=== PATIENT | male | born 1940 | race Caucasian/White ===

== ENCOUNTER 2018-03-28 09:39 | Outpatient (CLI) | payer MEDICARE, SELFPAY ==
[2018-03-28 10:28] LABS: HCT 41.2 % (40.0-50.0); HGB 14.7 g/dL (13.5-17.5); Mean Corp. HGB Concentration 35.7 g/dL (32.0-36.0); Mean Corpuscular Hemoglobin 36.8 pg (27.0-33.0); Mean Platelet Volume 9.3 fL (8.0-11.0); Platelet Count 194 x1000/uL (130-400); RBC Distribution Width 11.8 % (11.8-14.1); White Blood Cell Count 7.06 k/cumm (4.4-10.8)
[2018-03-28 11:42] LABS: Anion Gap 8.9 mmol/L (3-11); BUN 19 mg/dL (7-18); CO2 28.1 mmol/L (21.0-32.0); CREATININE 1.04 mg/dL (0.70-1.30); Calcium 8.6 mg/dL (8.5-10.1); Chloride 104 mmol/L (98-107); Glucose 114 mg/dL (70-100); Potassium 4.3 mmol/L (3.5-5.1); Sodium 141 mmol/L (136-145); Vitamin B12 502 pg/mL (193-986)
== END 2018-03-28 09:59 ==
PROVIDERS: PCP Family Medicine; Visit Provider Family Medicine
DX: I25.10 Atherosclerotic heart disease of native coronary artery without angina pectoris (principal); D75.89 Other specified diseases of blood and blood-forming organs; R60.0 Localized edema
CPT/HCPCS: 36415; 80048; 85027; 82607

== ENCOUNTER → 2018-09-13 09:21 | Outpatient (BNVA) | payer MEDICARE, SELFPAY | PROVIDERS: PCP Family Medicine; Referring Provider Family Medicine; Visit Provider Orthopaedic Surgery | DX: Z47.1 Aftercare following joint replacement surgery (principal); Z96.653 Presence of artificial knee joint, bilateral | CPT/HCPCS: 99213 ==

== ENCOUNTER 2018-10-09 08:14 | Day surgery (SDC) | payer MEDICARE, SELFPAY ==
--- NOTE | 2018-10-08 19:32 | W.PIPPEYE ---
History of Present Illness Chief Complaint: Progressive decreased vision, left eye Narrative: Patient is a 77-year-old male who has noted diminished visual acuity at near. He has significant difficulty trouble with reading. This is constant and occurs in both eyes. He was noted to have significant bilateral nuclear cataracts with high hyperopia. The option of cataract surgery was offered to patient as he felt he was symptomatic enough that he wished to proceed. NOTE: The Chief Complaint, HPI, Past Medical History, Past Surgical History, Family History, Social History, Medications, and complete Ophthalmic Exam with detailed Assessment and Plan have already been documented in the patient's outpatient ophthalmic record and are not covered again in detail here. PFSH Family History Other Cancer Social History Smoking/Tobacco Use Status: Former Tobacco Use Alcohol Intake: former Drug use: Never Substance use type: does not use Do you feel safe at home: Yes Do you feel safe in your relationship?: Yes Meds Home Medications Medication Instructions Recorded Confirmed Type aspirin [Aspir 81] 81 mg PO DAILY 11/26/13 10/03/18 History finasteride 5 mg PO HS 11/26/13 10/03/18 History Aloe Vera Juice 4 oz PO BID 10/03/18 10/04/18 History atorvastatin 40 mg PO QHS 10/03/18 10/03/18 History furosemide 20 mg PO DAILY 10/03/18 10/03/18 History metoprolol succinate 25 mg PO DAILY 10/03/18 10/03/18 History mupirocin 1 applic TOPICAL BID PRN 10/03/18 10/03/18 History selenium sulfide 1 % TOPICAL .2 X WEEK PRN 10/03/18 10/03/18 History solifenacin [Vesicare] 5 mg PO DAILY 10/03/18 10/03/18 History triamcinolone acetonide 1 applic TOPICAL BID PRN 10/03/18 10/03/18 History Allergies Allergy/AdvReac Type Severity Reaction Status Date / Time oxycodone [Oxycodone] AdvReac Severe SEVERE Unverified 10/04/18 14:07 NAUSEA Exam OCULAR EXAM:: Most recent ocular examination is significant for visual acuity of 20/30 OD, 20/25 OS. Intraocular pressure is 10 OU. Extraocular motility is normal. Pupils equal, round, and reactive without afferent pupillary defect slit-lamp examination is significant for intermediate anterior chamber depth centrally. Pupils dilated to 6 mm OU. 2-3+ brunescent nuclear cataract is present OU. Dilated funduscopic examination is significant for disc cupping of 0.3 OU. The vessels, macula, peripheral retina and vitreous is normal. BRIGHTNESS ACUITY TESTING (BAT):: Brightness acuity testing of the left eye office is 20/25. On low and medium is 20/30. On the high setting is 20/40. Assessment and Plan (1) Nuclear sclerotic cataract of left eye: Current visit: No Status: Acute Assessment: Visually significant cataract, left eye. Plan: Cataract extraction with intraocular lens implantation, left eye Note: NOTE:: The details of the planned surgery, including the risks, indications,limitations,expectations,outcome and possible complications were explained to the patient. The patient understands the complications including, but not limited to: infection, hemorrhage, posterior dislocation of the lens or nuclear fragments which may require the intervention of a vitreoretinal surgeon, possible loss of the eye, or from anesthetic complications. The patient has been made aware of the option of not having surgery, that vision following surgery may not be equal to that prior to surgery, and that the planned surgery may not achieve the intended results. Following this discussion, which the patient appeared to understand, the patient wishes to proceed with cataract surgery with lens implantation of the affected eye to improve and maximize vision.
[2018-10-09 08:10] VITALS: BP 116/80; PULSE 61; RESP 16; TEMP 36.2; O2SAT 98
[2018-10-09] MEDS: Tetracaine 0.5% 4 ML BTL OS ×4 (08:37→10:00)
[2018-10-09] MEDS: Tropicam./Phenyleph. (1/2.5%) 5 ML BTL OS ×3 (08:38→08:48)
--- NOTE | 2018-10-09 09:44 | PDOC.DSDIS_ITS ---
Discharge Plan Disposition Patient Disposition: HOME Condition: Stable Discharge Details Attending Provider: Dg García Primary Care Provider: Ivan Leblanc [place] Meds and New Rx's Prescriptions: No Action aspirin [Aspir-81] 81 MG tablet,delayed release (DR/EC) 81 mg PO DAILY RF: 0 finasteride 5 MG tablet 5 mg PO HS RF: 0 Aloe Vera Juice 4 oz PO BID RF: 0 atorvastatin 40 mg Tablet 40 mg PO QHS RF: 0 triamcinolone acetonide 0.1 % Cream 1 applic TOPICAL BID PRNRF: 0 mupirocin 2 % Ointment 1 applic TOPICAL BID PRNRF: 0 furosemide 20 mg Tablet 20 mg PO DAILY RF: 0 metoprolol succinate 25 mg Tablet Extended Release 24 Hr 25 mg PO DAILY RF: 0 Vesicare 5 mg Tablet 5 mg PO DAILY RF: 0 selenium sulfide 2.5 % Lotion 1 % TOPICAL .2 X WEEK PRNRF: 0 Discharge Instructions Stand Alone Forms: Post-op Topical Cataract, Fatou Diez (DSU) Discharge Orders Discharge Orders: Discharge Order (Routine); Ordered 10/09/18 Ordered By: Dg García DS: Diagnosis Discharge Diagnosis (1) Nuclear sclerotic cataract of left eye: Status: Resolved (2) Status post cataract extraction and insertion of intraocular lens of left eye: Status: Chronic
--- NOTE | 2018-10-09 09:46 | ROE_ITS ---
Date of service: 10/09/18 Time of Service: 10:30 Operative Note PRE-OP DIAGNOSIS: Cataract, left eye POST-OP DIAGNOSIS: same PROCEDURE: Cataract extraction using phacoemulsification with intraocular lens implant, left eye SURGEON: Dg García ANESTHESIA: MAC and local (sub-tenon's anesthetic infiltration) PATHOLOGY: none sent COMPLICATIONS: None Patient was transported to: same day Patient's condition: stable Implants: [place] [employer] [place] [employer] / [employer] Tecnis ZCB00 Indications: Progressive decreased vision due to cataract, left eye Procedure Description: CATARACT SURGERY OPERATIVE REPORT PREOPERATIVE DIAGNOSIS: Nuclear cataract, left eye POSTOPERATIVE DIAGNOSIS: Same OPERATION: Cataract extraction using phacoemulsification with posterior chamber intraocular lens implant, left eye. IOL: IOL [employer]igator [employer]/Model: J&J Vision / GOPI Tecnis ZCB00 IOL Power: + 23.50 diopters IOL Serial Number: [id number] Optic Diameter: 6.0mm Haptic/Overall Diameter: 13.0mm PHACO INFO: Sachin Altheosurion Vision System with OZil and Active Fluidics Cumulative Dispersed Energy (CDE): 7.75 seconds SURGEON: Dg García MD, DERIAN ANESTHESIA: Monitored Anesthesia Care (MAC), with local sub-tenon's anesthetic infiltration COMPLICATIONS: None SPECIMENS: None INDICATIONS FOR PROCEDURE: The patient is a 77-year-old male with history of high hyperopia who has developed symptomatic bilateral nuclear cataract. The option of cataract surgery was offered to the patient and he felt he was symptomatic enough that he wished to proceed. PROCEDURE: The correct surgical eye was identified and marked as the left eye and the pupil was dilated in the preoperative area using mydriatics and cycloplegics. The dilated pupil size was 6.5 mm. Oral sedation was administered in the form of an Imprimis MKO Melt (midazolam 3mg/ketamine 25mg/ondansetron 2mg). The patient was brought to the operating room where cardiopulmonary monitoring was instituted and surgical time-out was performed, confirming the correct operative eye and IOL power. Topical anesthesia was administered and ophthalmic povidone-iodine 5% was instilled into the conjunctival fornices. Lidocaine gel was applied to the cornea and the laney-ocular area was prepped with Betadine 10% solution and draped in the usual sterile fashion for intraocular surgery, including an aperture drape. A Tegaderm transparent film dressing was cut in half and used to cover the lashes and lid margins. Care was taken to sequester the lashes and lid margins under the Tegaderm dressing. A lid speculum was placed between the lids of the operative eye and the [place]se[place]-Jayna operating microscope was maneuvered into position. Gabby scissors were then used to make a conjunctival buttonhole approximately 6mm posterior to the limbus in the inferonasal quadrant. Blunt dissection was carried out to expose bare sclera, and a blunt-tipped sub-tenon?s anesthesia cannula was introduced and passed posteriorly along the globe where non- preserved plain lidocaine was injected into posterior sub-Tenon?s space. A sideport knife was used to make a paracentesis port superior/superiortemporal, and the anterior chamber was filled with Viscoat. A 2.4mm keratome knife was used to create a half-thickness groove at the limbus and then to construct a three-plane near-clear corneal tunnel extending 2.0mm into clear cornea in the temporal position. . A flap was raised on the anterior capsule and capsulorhexis forceps were used to complete a continuous curvilinear capsulorhexis of 4.8 mm. Balanced salt solution was then used to perform cortical cleaving hydrodissection and nuclear hydrodelineation until the lens could be freely rotated within the capsular bag. The lens nucleus was then disassembled and removed within the capsular bag and iris plane using phacoemulsification. Residual cortical material was removed using the 45-degree angled silicone I/A tip with 0.3mm port. The posterior capsule was carefully polished to remove as much residual lens epithelial cells as safely possible. The capsular bag was then inflated and the anterior chamber deepened with Provisc. The lens implant described above was inserted into the capsular bag using the GOPI [place] Injector. A Kuglen hook was used to dial the IOL into position. Residual viscoelastic was then removed first from posterior to the IOL, then from the anterior chamber using the I/A handpiece. The lens implant was noted to center nicely within the capsular bag. The incisions were stromally hydrated, and the anterior chamber was reformed using BSS. Then 0.4cc of moxifloxacin 1.5mg/ml were injected into the capsular bag and anterior chamber. The incisions were checked with a Weck spear and found to be secure. Several drops of ophthalmic povidone-iodine 5% were then applied to the eye followed by two drops of Imprimis combination gatifloxacin/dexamethasone solution. The drapes were removed and a clear plastic protective eye shield was placed over the eye. The patient was then returned to Same Day Surgery in stable condition.
[2018-10-09] MEDS: Lidocaine 2% Jelly 6 ML SYR (10:00)
[2018-10-09] MEDS: Povidone-Iodine Ophth 30 ML BTL ×2 (10:00→10:23)
[2018-10-09] MEDS: Lidocaine 1% Pres-Free 5 ML VIAL (10:05)
[2018-10-09] MEDS: Duovisc Viscoelastic System EACH 1 EACH (10:05)
[2018-10-09] MEDS: Balanced Salt Soln.-PLUS 500 ML BAG (10:05)
[2018-10-09 10:50] VITALS: BP 112/76; PULSE 54; RESP 18; TEMP 36.4; O2SAT 93
== END 2018-10-09 11:00 | disposition home or self-care (01) ==
PROVIDERS: PCP Family Medicine; Visit Provider Ophthalmology
PROC: (CPT 66984; principal; 2018-10-09 10:30)
DX: H25.12 Age-related nuclear cataract, left eye (principal); J44.9 Chronic obstructive pulmonary disease, unspecified; G47.33 Obstructive sleep apnea (adult) (pediatric); I10 Essential (primary) hypertension
CPT/HCPCS: 66984; V2632

== ENCOUNTER 2018-10-23 09:49 | Day surgery (SDC) | payer MEDICARE, SELFPAY ==
--- NOTE | 2018-10-22 18:08 | W.PIPPEYE ---
History of Present Illness Chief Complaint: Progressive decreased vision, right eye Narrative: The patient is a 77-year old male with history of progressive decreased vision in both eyes at near. He noted decreased reading vision in both eyes. He was noted to have significant bilateral nuclear cataracts with visual acuity of 20/40 OD, 20/30 OS. He was significantly symptomatic that he desired cataract surgery which was performed OS on 10/09/2018. Postoperatively he has regained best corrected vision of 20/20 in the left eye. He now presents for cataract surgery in the right eye. NOTE: The Chief Complaint, HPI, Past Medical History, Past Surgical History, Family History, Social History, Medications, and complete Ophthalmic Exam with detailed Assessment and Plan have already been documented in the patient's outpatient ophthalmic record and are not covered again in detail here. [facility] Medical History Hx of actinic keratosis (Acute) BPH (benign prostatic hyperplasia) (Chronic) COPD (chronic obstructive pulmonary disease) (Chronic) Cataract (Chronic) Coronary artery disease (Chronic) High cholesterol (Chronic) Hypertension (Chronic) WILDA on CPAP (Chronic) Nuclear sclerotic cataract of left eye (Resolved) Surgical History Status post cataract extraction and insertion of intraocular lens of left eye (Chronic 10/09/18) History of cardiac catheterization (Chronic) History of colonoscopy (Chronic) History of knee replacement (Chronic) History of shoulder surgery (Chronic) Family History Other Cancer Social History Smoking/Tobacco Use Status: Former Tobacco Use Alcohol Intake: former Drug use: Never Substance use type: does not use Do you feel safe at home: Yes Do you feel safe in your relationship?: Yes Meds Home Medications Medication Instructions Recorded Confirmed Type aspirin [Aspir 81] 81 mg PO DAILY 11/26/13 10/09/18 History finasteride 5 mg PO HS 11/26/13 10/09/18 History Aloe Vera Juice 4 oz PO BID 10/03/18 10/09/18 History atorvastatin 40 mg PO QHS 10/03/18 10/09/18 History furosemide 20 mg PO DAILY 10/03/18 10/09/18 History metoprolol succinate 25 mg PO DAILY 10/03/18 10/09/18 History mupirocin 1 applic TOPICAL BID PRN 10/03/18 10/03/18 History selenium sulfide 1 % TOPICAL .2 X WEEK PRN 10/03/18 10/03/18 History solifenacin [Vesicare] 5 mg PO DAILY 10/03/18 10/09/18 History triamcinolone acetonide 1 applic TOPICAL BID PRN 10/03/18 10/03/18 History Allergies Allergy/AdvReac Type Severity Reaction Status Date / Time oxycodone [Oxycodone] AdvReac Severe SEVERE Unverified 10/09/18 08:34 NAUSEA Exam OCULAR EXAM:: Most recent ocular examination is significant for uncorrected vision of 20/200 OD, 20/40 OS. Intraocular pressure is 10 OU. Extraocular motility is normal. Pupils equal, round, and reactive without afferent pupillary defect slit-lamp examination is significant for intermediate depth anterior chamber OD. Pupils dilated to 6 mm OU. 2-3+ nuclear cataract OD. Well-positioned PCIOL OS with clear posterior capsule. Dilated funduscopic examination shows disc cupping of 0.3 OU with normal vessels, macula, peripheral retina and vitreous. BRIGHTNESS ACUITY TESTING (BAT):: Brightness acuity testing of the right eye office is 20/30. Low is 20/50. Medium is 20/50. On the high setting is 20/70. Assessment and Plan (1) Nuclear sclerotic cataract of right eye: Current visit: No Status: Acute Assessment: Visually significant cataract, right eye. Plan: Cataract extraction with intraocular lens implantation, right eye Note: NOTE:: The details of the planned surgery, including the risks, indications,limitations,expectations,outcome and possible complications were explained to the patient. The patient understands the complications including, but not limited to: infection, hemorrhage, posterior dislocation of the lens or nuclear fragments which may require the intervention of a vitreoretinal surgeon, possible loss of the eye, or from anesthetic complications. The patient has been made aware of the option of not having surgery, that vision following surgery may not be equal to that prior to surgery, and that the planned surgery may not achieve the intended results. Following this discussion, which the patient appeared to understand, the patient wishes to proceed with cataract surgery with lens implantation of the affected eye to improve and maximize vision.
[2018-10-23 10:12] VITALS: BP 118/79; PULSE 54; RESP 16; TEMP 35.9; O2SAT 97
[2018-10-23] MEDS: Tetracaine 0.5% 4 ML BTL OD ×4 (10:27→11:20)
[2018-10-23] MEDS: Tropicam./Phenyleph. (1/2.5%) 5 ML BTL OD ×3 (10:27→10:34)
--- NOTE | 2018-10-23 11:11 | PDOC.DSDIS_ITS ---
Discharge Plan Disposition Patient Disposition: HOME Condition: Stable Discharge Details Attending Provider: Dg García Primary Care Provider: Ivan Leblanc [place] Meds and New Rx's Prescriptions: No Action aspirin [Aspir-81] 81 MG tablet,delayed release (DR/EC) 81 mg PO DAILY RF: 0 finasteride 5 MG tablet 5 mg PO HS RF: 0 Aloe Vera Juice 4 oz PO BID RF: 0 atorvastatin 40 mg Tablet 40 mg PO QHS RF: 0 triamcinolone acetonide 0.1 % Cream 1 applic TOPICAL BID PRNRF: 0 mupirocin 2 % Ointment 1 applic TOPICAL BID PRNRF: 0 furosemide 20 mg Tablet 20 mg PO DAILY RF: 0 metoprolol succinate 25 mg Tablet Extended Release 24 Hr 25 mg PO DAILY RF: 0 Vesicare 5 mg Tablet 5 mg PO DAILY RF: 0 selenium sulfide 2.5 % Lotion 1 % TOPICAL .2 X WEEK PRNRF: 0 Discharge Instructions Stand Alone Forms: Post-op Topical Cataract, Fatou Diez (DSU) Discharge Orders Discharge Orders: Discharge Order (Routine); Ordered 10/23/18 Ordered By: Dg García DS: Diagnosis Discharge Diagnosis (1) Nuclear sclerotic cataract of right eye: Status: Resolved (2) Status post cataract extraction and insertion of intraocular lens of right eye: Status: Chronic
--- NOTE | 2018-10-23 11:11 | W.PM.OP ---
Date of service: 10/23/18 Time of Service: 11:51 Operative Note PRE-OP DIAGNOSIS: Cataract, right eye PROCEDURE: Cataract extraction using phacoemulsification with intraocular lens implant, right eye SURGEON: Dg García ANESTHESIA: MAC and local (sub-tenon's anesthetic infiltration) ESTIMATED BLOOD LOSS: 0 PATHOLOGY: none sent COMPLICATIONS: None Patient was transported to: same day Patient's condition: stable Implants: [place] and [place] Vision / [employer] Opt[employer] Tecnis ZCB00 intraocular lens Indications: Progressive decreased vision due to cataract, right eye Procedure Description: CATARACT SURGERY OPERATIVE REPORT PREOPERATIVE DIAGNOSIS: Nuclear cataract, right eye POSTOPERATIVE DIAGNOSIS: Same OPERATION: Cataract extraction using phacoemulsification with posterior chamber intraocular lens implant, right eye. IOL: IOL Intensive Care Anaesthetist/Model: J&J gdgt / GOPI Tecnis ZCB00 IOL Power: + 23.0 diopters IOL Serial Number: [id number] Optic Diameter: 6.0mm Haptic/Overall Diameter: 13.0mm PHACO INFO: SachinTransceptaon Vision System with OZil and Active Fluidics Cumulative Dispersed Energy (CDE): 10.51 seconds SURGEON: Dg García MD, DERIAN ANESTHESIA: Monitored Anesthesia Care (MAC), with local sub-tenon's anesthetic infiltration COMPLICATIONS: None SPECIMENS: None INDICATIONS FOR PROCEDURE: Patient is a 77-year-old gentleman with history of diminished visual acuity and both eyes secondary to the development of significant bilateral nuclear cataract. He has already undergone cataract surgery and his left eye is doing well postoperatively. He now has significant anisometropia and asymptomatic cataract in his right eye. He presents for cataract surgery of the right eye. PROCEDURE: The correct surgical eye was identified and marked as the right eye and the pupil was dilated in the preoperative area using mydriatics and cycloplegics. The dilated pupil size was 6.5 mm. Oral sedation was administered in the form of an Imprimis MKO Melt (midazolam 3mg/ketamine 25mg/ondansetron 2mg). The patient was brought to the operating room where cardiopulmonary monitoring was instituted and surgical time-out was performed, confirming the correct operative eye and IOL power. Topical anesthesia was administered and ophthalmic povidone-iodine 5% was instilled into the conjunctival fornices. Lidocaine gel was applied to the cornea and the laney-ocular area was prepped with Betadine 10% solution and draped in the usual sterile fashion for intraocular surgery, including an aperture drape. A Tegaderm transparent film dressing was cut in half and used to cover the lashes and lid margins. Care was taken to sequester the lashes and lid margins under the Tegaderm dressing. A lid speculum was placed between the lids of the operative eye and the Jasmeet-Jayna operating microscope was maneuvered into position. Gbaby scissors were then used to make a conjunctival buttonhole approximately 6mm posterior to the limbus in the inferonasal quadrant. Blunt dissection was carried out to expose bare sclera, and a blunt-tipped sub-tenon?s anesthesia cannula was introduced and passed posteriorly along the globe where non-preserved plain lidocaine was injected into posterior sub-Tenon?s space. A sideport knife was used to make a paracentesis port inferiortemporally, and the anterior chamber was filled with Healon GV. A 2.4mm keratome knife was used to create a half-thickness groove at the limbus and then to construct a three-plane near-clear corneal tunnel extending 2.0mm into clear cornea in the superiortemporal position. . A flap was raised on the anterior capsule and capsulorhexis forceps were used to complete a continuous curvilinear capsulorhexis of 5.0 mm. Balanced salt solution was then used to perform cortical cleaving hydrodissection and nuclear hydrodelineation until the lens could be freely rotated within the capsular bag. The lens nucleus was then disassembled and removed within the capsular bag and iris plane using phacoemulsification. Residual cortical material was removed using the I/A handpiece. The posterior capsule was carefully polished to remove as much residual lens epithelial cells as safely possible. The capsular bag was then inflated and the anterior chamber deepened with viscoelastic. The lens implant described above was inserted into the capsular bag using the GOPI [place] Injector. A Kuglen hook was used to dial the IOL into position. Residual viscoelastic was then removed first from posterior to the IOL, then from the anterior chamber using the I/A handpiece. The lens implant was noted to center nicely within the capsular bag. The incisions were stromally hydrated, and the anterior chamber was reformed using BSS. Then 0.4cc of moxifloxacin 1.5mg/ml were injected into the capsular bag and anterior chamber. The incisions were checked with a Weck spear and found to be secure. Several drops of ophthalmic povidone-iodine 5% were then applied to the eye followed by two drops of Imprimis combination prednisolone/gatifloxacin/bromfenac solution. The drapes were removed and a clear plastic protective eye shield was placed over the eye. The patient was then returned to Same Day Surgery in stable condition.
[2018-10-23] MEDS: Lidocaine 2% Jelly 6 ML SYR (11:20)
[2018-10-23] MEDS: Balanced Salt Soln.-PLUS 500 ML BAG (11:30)
[2018-10-23] MEDS: Lidocaine 1% Pres-Free 5 ML VIAL (11:31)
[2018-10-23 12:20] VITALS: BP 115/73; PULSE 54; RESP 16; TEMP 36.7; O2SAT 94
== END 2018-10-23 12:31 | disposition home or self-care (01) ==
PROVIDERS: PCP Family Medicine; Visit Provider Ophthalmology
PROC: (CPT 66984; principal; 2018-10-23 12:30)
DX: H25.11 Age-related nuclear cataract, right eye (principal); Z98.42 Cataract extraction status, left eye; Z96.1 Presence of intraocular lens; J44.9 Chronic obstructive pulmonary disease, unspecified; G47.33 Obstructive sleep apnea (adult) (pediatric); I10 Essential (primary) hypertension
CPT/HCPCS: 66984; V2632

== ENCOUNTER 2019-01-31 13:38 | Outpatient (REF) | payer MEDICARE, SELFPAY ==
[2019-01-31 19:30] LABS: Anion Gap 10.5 mmol/L (3-11); BUN 16 mg/dL (7-18); CO2 27.5 mmol/L (21.0-32.0); CREATININE 0.93 mg/dL (0.70-1.30); Chloride 105 mmol/L (98-107); Glucose 105 mg/dL (70-100); Potassium 4.5 mmol/L (3.5-5.1); Sodium 143 mmol/L (136-145)
[2019-01-31 19:32] LABS: Abs Immature Grans 0.01 k/cumm (0.0-0.09); Absolute Basophil Count 0.03 k/cumm (0.0-0.2); Absolute Eosinophil Count 0.28 k/cumm (0.0-0.7); Absolute Lymphocyte Count 2.27 k/cumm (1.2-3.4); Absolute Neutrophil Count 3.38 k/cumm (1.2-6.7); Basophils % 0.5; Eosinophils % 4.3; HCT 45.1 % (40.0-50.0); HGB 15.6 g/dL (13.5-17.5); Immature Grans % 0.2; Lymphocytes % 34.6; Mean Corp. HGB Concentration 34.6 g/dL (32.0-36.0); Mean Corpuscular Hemoglobin 35.7 pg (27.0-33.0); Mean Corpuscular Volume 103.2 fL (80-95); Mean Platelet Volume 9.6 fL (8.0-11.0); Monocytes % 9.1; Neutrophils % 51.3; Platelet Count 199 x1000/uL (130-400); RBC 4.37 m/cumm (4.50-6.00); RBC Distribution Width 11.7 % (11.8-14.1); White Blood Cell Count 6.57 k/cumm (4.4-10.8)
[2019-01-31 19:35] LABS: Calcium 8.6 mg/dL (8.5-10.1)
== END 2019-01-31 13:58 ==
LOC: NCHCN 13:38
PROVIDERS: PCP Family Medicine; Visit Provider Family Medicine
DX: I25.10 Atherosclerotic heart disease of native coronary artery without angina pectoris (principal); R60.0 Localized edema; K12.0 Recurrent oral aphthae
CPT/HCPCS: 80048; 85025

== ENCOUNTER → 2019-02-14 10:35 | Outpatient (BNVA) | payer MEDICARE, SELFPAY | PROVIDERS: PCP Family Medicine; Referring Provider Family Medicine; Visit Provider Orthopaedic Surgery | DX: S46.912A Strain of unspecified muscle, fascia and tendon at shoulder and upper arm level, left arm, initial encounter (principal); X50.9XXA Other and unspecified overexertion or strenuous movements or postures, initial encounter | CPT/HCPCS: 99213; 99214 ==

== ENCOUNTER 2019-03-06 12:52 | Outpatient (CLI) | payer MEDICARE, SELFPAY ==
--- NOTE | 2019-03-06 11:30 | DI.CT_ITS ---
EXAM: CT CHEST W CLINICAL HISTORY: HEMOPTYSIS, R04.2, 78-YEAR-OLD FORMER SMOKER WITH COPD, NEW HEMOPTYSIS IN SETTING OF CLINICAL COPD EXACERBATION TECHNIQUE: Imaging Protocol: Axial computed tomography images with coronal and sagittal reformatted images were created and reviewed CONTRAST MATERIAL: Intravenous: Omnipaque 350 Contrast volume:100 mL contrast route:IV - Oral: No COMPARISON: CHEST FOR PULMONARY EMBOLUS from 11/10/2015 FINDINGS: Tracheobronchial tree: Patent where visualized. Mediastinum and Adrianna: No dominant adenopathy or fluid collection. Pulmonary parenchyma: No consolidation or dominant measurable mass. There are severe emphysematous ch anges present in the lungs. There is a stable 0.6 cm pleural-based nodule in the left lower lobe. T his is unchanged dating back to 11/10/2015. No new pulmonary nodules are present. Pleura: No effusion or pneumothorax. Heart/Aorta: Thoracic aorta non-dilated. The heart is not dilated. Coronary artery calcifications are present. Upper abdomen: There is hepatic steatosis. There is a 2 mm nonobstructing stone in the midpole of t he left kidney. There is a small hiatal hernia. Lymph nodes: Within normal limits. Bones: There are degenerative changes seen in the spine. There are old bilateral rib fractures prese nt. IMPRESSION: 1. No pulmonary mass or thoracic adenopathy. 2. Severe emphysematous changes in the lungs. 3. Stable 0.6 cm left lower lobe pulmonary nodule. 4. Hepatic steatosis. Left nephrolithiasis. DATA REPOSITORY: All CT scans at this facility are submitted to the National Radiology Data Registry (NRDR) Dose Index Registry (DIR) with the [employer] (A[employer]). RADIATION OPTIMIZATION: All CT scans at this facility use at least one of these dose optimization te chniques: automated exposure control; mA and/or kV adjustment per patient size (includes targeted exa ms where dose is matched to clinical indication); or iterative reconstruction.
[2019-03-06] MEDS: Omnipaque 350 MG/ML 100 ML BTL IJ (12:01)
== END 2019-03-06 13:12 ==
PROVIDERS: PCP Family Medicine; Visit Provider Family Medicine
DX: R04.2 Hemoptysis (principal); J44.9 Chronic obstructive pulmonary disease, unspecified; Z87.891 Personal history of nicotine dependence; R91.1 Solitary pulmonary nodule; K76.0 Fatty (change of) liver, not elsewhere classified; N20.0 Calculus of kidney; K44.9 Diaphragmatic hernia without obstruction or gangrene; J43.8 Other emphysema
CPT/HCPCS: 71260; J3490

== ENCOUNTER 2020-02-26 16:10 | Outpatient (REF) | payer MEDICARE, SELFPAY ==
[2020-02-26 19:08] LABS: BUN 26 mg/dL (7-18); CREATININE 1.21 mg/dL (0.70-1.30); Chloride 105 mmol/L (98-107); Estimated GFR 57.56 (mL/min/1.73m2); Glucose 101 mg/dL (74-106); Magnesium 2.3 mg/dL (1.8-2.4); Potassium 4.5 mmol/L (3.5-5.1); Sodium 141 mmol/L (136-145)
== END 2020-02-26 16:30 ==
LOC: NCHCN 16:10
PROVIDERS: PCP Family Medicine; Visit Provider Family Medicine
DX: J44.9 Chronic obstructive pulmonary disease, unspecified (principal)
CPT/HCPCS: 80048; 83735

== ENCOUNTER 2020-03-18 00:13 | Outpatient (CLI) | payer MEDICARE, SELFPAY ==
--- NOTE | 2020-03-18 | DI.US_ITS ---
EXAM: US AAA DIAGNOSTIC CLINICAL HISTORY: F/U AAA,I71.4 COMPARISON: US AAA SCREENING from 05/14/2016 FINDINGS: The proximal abdominal aorta measures 3.2 cm. The distal abdominal aorta measures 3.3 cm. The right iliac artery 1.7 cm. The left iliac artery measures 1.2 cm. IMPRESSION: Maximal dimension of the abdominal aorta is 3.3 cm. 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 DATA REPOSITORY:
== END 2020-03-18 00:33 ==
PROVIDERS: PCP Family Medicine; Visit Provider Family Medicine
DX: I71.4 Abdominal aortic aneurysm, without rupture (principal)
CPT/HCPCS: 76775

== ENCOUNTER 2020-06-11 22:35 | Emergency (ER) | payer MEDICARE, SELFPAY ==
--- NOTE | 2020-06-11 22:30 | RT.EKG_ITS ---
APPROVED REPORT Exam: Resting ECG Patient Location: E HR:62 bpm ECG Measurements Heart Rate [address] 206 P 58 QRSd 81 QRS -24 QT 413 T 100 QTc 418 Conclusion Sinus rhythm...normal P axis, V-rate 60- 99 Low voltage, extremity and precordial leads...extremity<0.5mV, precordial<1.0mV Nonspecific T abnormalities, lateral leads...T <-0.10mV, I aVL V5 V6
[2020-06-11 22:41] VITALS: BP 141/71; PULSE 62; RESP 16; TEMP 36.5; O2SAT 100
--- OUTSIDE RECORDS SUMMARY | 2020-06-11 22:42 | XMS_ITS | Encounter Summary ---
:1940 Author Care Team Providers Name Role Phone Ivan Leblanc MD ([facility]) Primary Care Provider [phone] [facility] Medical Records OTHER [phone] [facility] OTHER [phone] Reason for Visit Obstructive sleep apnea syndrome Assessment and Plan 1. Obstructive sleep apnea syndr ome WILDA diagnosed in 2011 with an AHI of 43/hr, he has COPD overlap syndrome. He had been using BiPAP Imax 17 cm, Vinod 12 cm, PS 4 cm until it broke a few months ago. I ordered a new one on 02/06/20 but he had to this face to face visit before his insurance would pay for a new BiPAP. He says since he has been without BiPAP he is much more fatigued and he is now waking up multiple times a night. I want him to start back SHANIQUA. Unfortuna tely he is having a dispute with Angelina over a bill his girlfriend received and he said he won't parts picker his BiPAP until that is resolved. I offered to send it to another DME and he declined. He is aware he will need to meet insurance compliance requirements again. I will see him back in three months. Drowsy driving precautions were reviewed. He is asked to call the clinic for any sleep related questio ns or concerns. I provided greater than 25 minutes in e care of this patient, more than half the time was spent in [id number] counseling. Discussion Note: None recorded.Patient educational handouts: No information available. Plan of Care Reminders Provider Appointments Office 30 07/16/2020 Kemar Santizo, 11:30AM SUPERINTENDENT MECHANICAL Lab None ? ? recorded. Referral None ? ? recorded. Procedures None ? ? recorded. Surgeries None ? ? recorded. Imaging None ? ? recorded. Medications Name Start Date ? ? Asprin Ec Low Dose 81 mg tablet,delayed release ? Take 1 tablet every day by oral route. atorvastatin 40 mg tablet ? Take 1 tablet every day by oral route. finasteride 5 mg tablet ? Take 1 tablet every day by oral route. furosemide 20 mg tablet ? Take 1 tablet every day by oral route. metoprolol tartrate 25 mg tablet ? Take 1 tablet twice a day by oral route. selenium sulfide 2.5 % lotion ? APPLY TO WET SCALP BY TOPICAL ROUTE ONC E WEEKLY WORK INTO A FULL LATHER, LEAVE ON SCALP FOR 2-3 MINUTES, RINSE THOROUGHLY, AND THEN PAT DRY triamcinolone 0.1 % topical ointment and dimethicone 5 % topical ? cream Vesicare 5 mg tablet ? Take 1 tablet every day by oral route. Medications Administered None recorded. Vitals Height Weight BMI Blood Pressure 5 ft 6 in 213.4 lbs 34.4 kg/m2 120/80 mm[Hg] Results Lab Results None recorded. Allergies Code Code System Name Reaction Severity Onset Combivent ? ? ? 42457 RxNorm Percocet ? ? ? 07324 RxNorm Terazosin ? ? ? 020060 RxNorm Vicodin ? ? ? Problems Name Status Onset Date Source ? Chronic Obstructive Lung Disease Active 03/30/2019 ? Diverticulitis Active 03/30/2019 ? History of Cardiac Catheterization Active 03/30/2019 ? History of Arthroplasty of Right Knee Active 03/30/2019 ? Obstructive Sleep Apnea Syndrome Active ? ? Procedures None recorded. Vaccine List None recorded. Social History Tobacco Smoking Status Former Smoker Notes: Started 12 Quit age 45- 3PPD Alcohol intake None Notes: Quit age 2 7- quart fo Vodka a day Live alone or with others? with others Animal exposure? N Are you currently employed? N Smokeless Tobacco Status Never used smokeless tobacco Blind or serious difficulty N Notes: Abraham rgery, reading seeing glasses Passive smoke exposure? N Hard of hearing or deaf in one Y Notes: Right ear or both ears? hearing aid E-cigarette/Vape Status Never used electronic cigarettes Caffeine intake Occasional Notes: 20 cups Co ffee a month, 3 soda's ( [facility]) weekly Drug Use N Occupation Retired Functional Status No Impairment. Past Encounters 03/11/2020 Obstructive Sleep Apnea Syndrome Luisa Santizo SUPERINTENDENT MECHANICAL: [address] [place] [phone], Ph. History of Present Illness Note: <p>Adeel Carbee comes in for WILDA follow-up.</p><p>
</p><p>Adeel was seen by me on 05/10/19. Adeel has a history of obesity, COPD, CAD, HLD, BPH and WILDA.He had a PSG 12/18/11 (BMI 37.6), AHI 43/hr, 02 nadr 69%. PLMi 11/hr, PLMai 9/hr. Titration 02/24/12 (BMI 36.4), CPAP titrated to 12 cm, BiPAP to 17/13 cm, BiPAP 15/11 cm was successful but no significant REM seen at this setting. PLMi 68/hr, PLMai 21.4/hr. BiPAP 19/11/4 cm recommended. Last visit he was using BiPAP 17/12/4 cm for about 4.5 hrs/night with excellent reduction in AHI. 02/06/20: Adeel stopped by to report his BiPAP is not working, new order placed.</p><p>
</p><p>Adeel tells me he has not been using his BIPAP machine for about two to three months because he wakes feeling short of breath and his humidifier stopped working and caused a very dry mouth. I ordered a new BiPAP but he never got it because he apparently needed a F2F visit with me first. He says since he has been without BiPAP he is much more fatigued and he is now waking up multiple times a n ight.</p><p>
</p><p>
</p><p&g t;COMPLIANCE REVIEW:no data available</p>Review of Systems: ROS as noted in the HPI Review of Systems None recorded. Physical Exam ? Notes: <p>General: A&O, well groome d {{over weight obese * morbidly obese normal weight thin}}.
HEAD: no rmocephalic & atraumatic.
EYES: non icteric.
LUNGS: CTA all f ields. Good air movement.
CARDIO: RRR without murmur, gallop or thrill.
NEURO: A&O. Normal gait.
PSYCH: Normal mood and affect.
CUTANEOUS: no overt lesions or rashes</p>
--- OUTSIDE RECORDS SUMMARY | 2020-06-11 22:42 | XMS_ITS ---
:1940 Author Care Team Providers Name Role Phone RODERICK HSIEH MD ([facility]) Primary Care Provider [phone] [facility] MEDICAL RECORDS OTHER [phone] [facility] OTHER [phone] Allergies Code Code System Name Reaction Severity Status Onset Combivent ? ? Active ? 34845 RxNorm Percocet ? ? Active ? 00368 RxNorm Terazosin ? ? Active ? 059322 RxNorm Vicodin ? ? Active ? Medications Name Status Start Date Stop Date ? ? Asprin Ec Low Dose 81 mg tablet,delayed release Active ? Not available Take 1 tablet every day by oral route. atorvastatin 40 mg tablet Active ? Not av ailable Take 1 tablet every day by oral route. finasteride 5 mg tablet Active ? Not avai lable Take 1 tablet every day by oral route. furosemide 20 mg tablet Active ? Not avai lable Take 1 tablet every day by oral route. metoprolol tartrate 25 mg tablet Active ? Not available Take 1 tablet twice a day by oral route. selenium sulfide 2.5 % lotion Active ? No t available APPLY TO WET SCALP BY TOPICAL ROUTE ONC E WEEKLY WORK INTO A FULL LATHER, LEAVE ON SCALP FOR 2-3 MINUTES, RINSE THOROUGHLY, AND THEN PAT DRY triamcinolone 0.1 % topical ointment and Active ? Not available dimethicone 5 % topical cream Vesicare 5 mg tablet Active ? Not availab le Take 1 tablet every day by oral route. Problems Name Status Onset Date Source ? Chronic Obstructive Lung Disease Active 03/30/2019 ? Diverticulitis Active 03/30/2019 ? History of Cardiac Catheterization Active 03/30/2019 ? History of Arthroplasty of Right Knee Active 03/30/2019 ? Obstructive Sleep Apnea Syndrome Active ? ? Procedures None recorded. Results Lab Results None recorded. Past Encounters 03/11/2020 Obstructive Sleep Apnea Syndrome Luisa Santizo ANALYSIS DIRECTOR: [address] [place] [phone], Ph. 05/10/2019 Obstructive Sleep Apnea Syndrome Luisa Santizo, ANALYSIS DIRECTOR: [address] [phone], Ph. 04/05/2019 Obstructive Sleep Apnea Syndrome Luisa Santizo, ANALYSIS DIRECTOR: [address] [phone], Ph. Social History Tobacco Smoking Status Former Smoker Notes: Started 14 Quit age 45- 3PPD Vaccine List None recorded. Plan of Care Reminders Provider Appointments None ? ? recorded. Lab None ? ? recorded. Referral None ? ? recorded. Procedures None ? ? recorded. Surgeries None ? ? recorded. Imaging None ? ? recorded. Vitals 03/11/2020 10:30AM Office 30 Height Weight BMI Blood Pressure 167.64 cm 96.8 kg 34.4 kg/m2 120/80 mm[Hg] 05/10/2019 01:45PM Office 30 Height Weight BMI Blood Pressure 167.64 cm 99.34 kg 35.3 kg/m2 120/80 mm[Hg] 04/05/2019 01:15PM New Patient 43 Weight Blood Pressure 99.34 kg 110/60 mm[Hg]
--- NOTE | 2020-06-11 22:47 | ED.GENADUL_ITS ---
Discharge Plan Disposition Patient Disposition: HOME Condition: Stable Discharge Details Clinical Impression: Dizziness Primary Care Provider: Ivan Leblanc ED Provider: Paul Bonilla Home Meds and New Rx's Prescriptions: New meclizine 25 mg tablet 25 mg PO TID PRN (Reason: dizziness) Qty: 30 RF: 0 Continued aspirin [Aspir-81] 81 MG tablet,delayed release (DR/EC) 81 mg PO DAILY RF: 0 finasteride 5 MG tablet 5 mg PO HS RF: 0 Aloe Vera Juice 4 oz PO BID RF: 0 atorvastatin 40 mg Tablet 40 mg PO QHS RF: 0 triamcinolone acetonide 0.1 % Cream 1 applic TOPICAL BID PRNRF: 0 mupirocin 2 % Ointment 1 applic TOPICAL BID PRNRF: 0 furosemide 20 mg Tablet 20 mg PO DAILY RF: 0 metoprolol succinate 25 mg Tablet Extended Release 24 Hr 25 mg PO DAILY RF: 0 solifenacin [Vesicare] 5 mg Tablet 5 mg PO DAILY RF: 0 selenium sulfide 2.5 % Lotion 1 % TOPICAL .2 X WEEK PRNRF: 0 Discharge Instructions Instructions: Vertigo (ED) Additional Instructions: Follow up with your primary care provider within 1 week if symptoms continue if you feel more ill, have severe head pain or weakness return to the emergency department Medical Decision Making 79 yo male with hx of hld, comes in with chief complaint of dizziness. STates for 3 days when he turns his head and rolls over on his side the room spins. De nies lightheadedness, no chest pain, no headache, no dyspnea, no fevers. No sensation that he may pass out. He has a normal steady gait and sitting in the stretcher has no symptoms but when he moves his head to the left starts feeling the room spinning. Has clear speech, no focal deficits, no vertical nystagmus, reassuring hints exam. Normal left tm and canal but the right canal is impacted with cerumen. Suspect this is peripheral vertigo and caused by the impaction, ecg without arrythmia. Given no presyncope symptoms no chest pain or sob and laughing in no distress do not feel this is cardiac etiology. Exam not consistent with central vertigo or cva so do not feel had imaging indicated. Will tx with meclizine and ear irrigation and evaluate for possible anemia and electrolyte abnormality pt's symptoms improved and ear wax irrigated out and has normal tm. Still walking unassisted and feels well. Will d/c home and advised to f/u with pcp and return precautions given Differential Diagnosis Differential Diagnosis: wax impaction, peripheral vertigo, electrolyte abnormality Lab Data Lab results reviewed: Yes I reviewed the patient's lab results. ECG Data Attestation: I personally reviewed and interpreted this ECG (s) as follows: Prior ECG tracings: not available for review Interpretation: sinus rhyhm, rate of 62, pr 206, qtc 418 HPI General Mode of arrival: ambulatory . Date/Time Provider Initiated Documentation: 06/11/20 22:36 . Limitations to Documentation: no limitations . Information obtained by: patient . History of Present Illness 79 year old M presents to the emergency department with the chief complaint of dizzy, described as moderate, Patient started experiencing this day(s) (3) and it has been intermittent. Other factors that worsen symptoms (turning head) . Patient did receive the following treatments prior to arrival, none Related Data Home Medications Medication Instructions Recorded Confirmed aspirin [Aspir-81] 81 mg PO DAILY 11/26/13 02/14/19 finasteride 5 mg PO HS 11/26/13 02/14/19 Aloe Vera Juice 4 oz PO BID 10/03/18 02/14/19 atorvastatin 40 mg PO QHS 10/03/18 02/14/19 furosemide 20 mg PO DAILY 10/03/18 02/14/19 metoprolol succinate 25 mg PO DAILY 10/03/18 02/14/19 mupirocin 1 applic TOPICAL BID PRN 10/03/18 02/14/19 selenium sulfide 1 % TOPICAL .2 X WEEK PRN 10/03/18 02/14/19 solifenacin [Vesicare] 5 mg PO DAILY 10/03/18 02/14/19 triamcinolone acetonide 1 applic TOPICAL BID PRN 10/03/18 02/14/19 meclizine 25 mg PO TID PRN #30 tab 06/11/20 Previous Rx's Medication Instructions Recorded meclizine 25 mg PO TID PRN #30 tab 06/11/20 Allergies Allergy/AdvReac Type Severity Reaction Status Date / Time acetaminophen [From Percocet] Allergy Mild Verified 02/14/19 10:38 albuterol [From Combivent] Allergy Mild Verified 02/14/19 10:38 hydrocodone [From Vicodin] Allergy Mild Verified 02/14/19 10:38 ipratropium [From Combivent] Allergy Mild Verified 02/14/19 10:38 terazosin Allergy Mild Verified 02/14/19 10:38 oxycodone [Oxycodone] AdvReac Severe SEVERE Verified 02/14/19 10:38 NAUSEA Review of Systems All systems reviewed & are unremarkable except as noted in HPI and below Constitutional Constitutional: Denies chills and Denies fever(s) Cardiovascular Cardiovascular: Denies dyspnea Respiratory Respiratory: Denies cough and Denies dyspnea Gastrointestinal Gastrointestinal: Denies abdominal pain, Denies nausea and Denies vomiting Genitourinary Genitourinary: Denies dysuria Musculoskeletal Musculoskeletal: Denies joint swelling Integumentary/Breasts Skin/Breast: Denies rash [facility] Medical History (Updated 06/11/20 @ 23:44 by Paul Bonilla MD) BPH (benign prostatic hyperplasia) Cataract COPD (chronic obstructive pulmonary disease) Coronary artery disease High cholesterol Hx of actinic keratosis Hypertension Nuclear sclerotic cataract of left eye WILDA on CPAP Surgical History (Updated 10/23/18 @ 11:11 by Dg García MD) History of cardiac catheterization History of colonoscopy History of knee replacement Bilateral History of shoulder surgery Status post cataract extraction and insertion of intraocular lens of left eye (10/09/18) Family History Other Cancer Social History Smoking/Tobacco Use Status: Former Tobacco Use Quit Date: 10/04/86 Smoking risk assessment performed?: Yes Alcohol Intake: former Drug use: Never Substance use type: does not use Do you feel safe at home: Yes Do you feel safe in your relationship?: Yes Exam Const General: no acute distress Orientation: alert HENMT Head: normal to inspection Ears: external ears normal General nose exam: external nose normal Mouth: moist mucous membranes Eyes General: appearance normal, both eyes and all related structures Neck Neck: normal visual inspection Resp Effort & Inspection: normal respiratory effort and able to speak in complete sentences Cardio Rate: regular rate Skin General skin exam: no rashes or lesions noted Neuro General: patient alert and patient oriented x3 Extrem General: normal to inspection Psych Mental Status: mental status grossly normal
[2020-06-11] MEDS: Meclizine 25 MG TAB PO (23:00)
[2020-06-11 23:14] LABS: Abs Immature Grans 0.02 10^3/uL (0.0-0.06); Absolute Basophil Count 0.02 10^3/uL (0.0-0.2); Absolute Eosinophil Count 0.18 10^3/uL (0.0-0.7); Absolute Lymphocyte Count 3.28 10^3/uL (1.2-3.4); Absolute Monocyte Count 0.92 10^3/uL (0.1-0.8); Absolute Neutrophil Count 4.02 10^3/uL (1.2-6.7); Basophils % 0.2; Eosinophils % 2.1; HCT 42.6 % (40.0-50.0); HGB 14.2 g/dL (13.5-17.5); Immature Grans % 0.2; Lymphocytes % 38.9; MCHC 33.3 % (32.0-36.0); MCV 104.9 fL (80-95); MPV 8.8 fL (8.0-11.0); Monocytes % 10.9; Neutrophils % 47.7; Nucleated RBC 0 %; Platelet Count 172 10^3/uL (130-400); RBC 4.06 10^6/uL (4.36-5.78); RDW 11.6 % (11.8-14.1); RDW-SD 45.1 fL; WBC 8.44 10^3/uL (4.4-10.8)
[2020-06-11 23:26] LABS: ALT 30 U/L (16-63); AST 20 U/L (15-37); Albumin 3.5 g/dL (3.4-5.0); Alkaline Phosphatase 89 U/L (46-116); Anion Gap 6.6 mmol/L (3-11); BUN 30 mg/dL (7-18); Bilirubin, Total 0.6 mg/dL (0.2-1.0); CO2 31.4 mmol/L (21.0-32.0); CREATININE 1.25 mg/dL (0.70-1.30); Calcium 8.7 mg/dL (8.5-10.1); Chloride 103 mmol/L (98-107); Estimated GFR 55.44 (mL/min/1.73m2); Glucose 105 mg/dL (74-106); Potassium 3.9 mmol/L (3.5-5.1); Sodium 141 mmol/L (136-145); Total Protein 6.7 g/dL (6.4-8.2)
== END 2020-06-11 23:55 | disposition home or self-care (01) ==
PROVIDERS: Emergency Provider Emergency Medicine; PCP Family Medicine
DX: H81.391 Other peripheral vertigo, right ear (principal); H61.21 Impacted cerumen, right ear
CPT/HCPCS: 36415; 69209; 80053; 93005; 99284; 85025; 93010; 99283

== ENCOUNTER → 2020-11-27 12:57 | Outpatient (BNVA) | payer MEDICARE, SELFPAY | PROVIDERS: PCP Family Medicine; Referring Provider Family Medicine; Visit Provider Nurse Practitioner Gerontology | DX: N47.8 Other disorders of prepuce (principal) | CPT/HCPCS: 99215 ==

== ENCOUNTER → 2020-12-18 13:14 | Outpatient (BNVA) | payer MEDICARE, SELFPAY | PROVIDERS: PCP Family Medicine; Referring Provider Family Medicine; Visit Provider Nurse Practitioner Gerontology | DX: N47.8 Other disorders of prepuce (principal) | CPT/HCPCS: 99213 ==

== ENCOUNTER 2021-02-17 01:19 | Outpatient (CLI) | payer MEDICARE, SELFPAY ==
--- NOTE | 2021-02-17 | DI.MRI_ITS ---
Exam(s) MR UPPER JOINT LT WO EXAM: MR UPPER JOINT LT WO CLINICAL HISTORY: LT ROTATOR CUFF SYNDROME,M75.102, PAIN. TECHNIQUE: Multiplanar multisequence MRI was performed. COMPARISON: None. FINDINGS: Exam mildly limited by patient motion. Bones: There is no fracture or contusion pattern. The acromioclavicular joint shows moderate spurring. Spur ring from the tip of the acromion.. Glenohumeral joint: Spurring of the inferior humeral head and gl enoid. Marked cartilage thinning of the glenoid. Rotator Cuff: There is a full-thickness tear of the supraspinatus tendon with retraction to the level of the glenoi d. There is severe muscle atrophy. Humeral head is positioned beneath the acromion. Findings are c onsistent with a longstanding, chronic rotator cuff tear. The infraspinatus tendon is also torn and retracted and there is severe infraspinatus atrophy. The subscapularis tendon shows thickening but n o evidence of a full-thickness tear. The teres minor muscle shows severe atrophy. Labrum and biceps anchor: The biceps tendon is located. The anchor is well maintained. The labrum shows advanced degenerative c hanges. There is a multiloculated collection posterosuperior to the glenoid measuring roughly 3.5 cm which may represent a multi loculated ganglion cyst or labral cyst.. It appears associated with the posterosuperior labrum. IMPRESSION: Full-thickness tears and retraction and severe muscle atrophy involving the supraspinatus and infrasp inatus. Severe muscle atrophy of the teres minor. Thickening of the subscapularis tendon. Severe d egenerative changes of the glenohumeral joint. The ganglion versus labels cyst posterosuperior to th e glenoid. DATA REPOSITORY:
== END 2021-02-17 01:39 ==
PROVIDERS: PCP Family Medicine; Visit Provider Family Medicine
DX: M75.102 Unspecified rotator cuff tear or rupture of left shoulder, not specified as traumatic (principal); M62.512 Muscle wasting and atrophy, not elsewhere classified, left shoulder; M19.012 Primary osteoarthritis, left shoulder
CPT/HCPCS: 73221

== ENCOUNTER 2021-02-25 11:26 | Outpatient (CLI) | payer MEDICARE, SELFPAY ==
--- NOTE | 2021-02-25 11:15 | DI.RAD_ITS ---
Exam(s) XR SHOULDER LT COMPLETE 2+V EXAM: XR SHOULDER LT COMPLETE 2+V CLINICAL HISTORY: LEFT SHOULDER PAIN. TECHNIQUE: 2D digital imaging was performed. COMPARISON: CR XR SHOULDER RT COMPLETE 2+V from 02/25/2021 FINDINGS: There is no evidence of acute fracture. There are advanced osteoarthritic degenerative changes in th e glenohumeral joint with opposing osteophytes on the inferior articular surfaces of the humeral head and osseous glenoid. In addition, there is advanced diminution of the subacromial space height, consistent with probable c hronic full-thickness rotator cuff tear. No abnormal soft tissue calcifications. Degenerative overton es in the AC joint. IMPRESSION: 1. Radiographic evidence of probable chronic full-thickness rotator cuff tear. 2. 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 DATA REPOSITORY: RADIATION DOSE DELIVERED:
--- NOTE | 2021-02-25 11:15 | DI.RAD_ITS ---
Exam(s) XR SHOULDER RT COMPLETE 2+V EXAM: XR SHOULDER RT COMPLETE 2+V CLINICAL HISTORY: RIGHT SHOULDER PAIN. TECHNIQUE: 2D digital imaging was performed. COMPARISON: Opposite side x-rays performed today FINDINGS: No evidence of acute fracture nor dislocation. There are advanced degenerative osteoarthritic change s with joint space narrowing in the glenohumeral joint as well as osteophytes on the inferior articul ar surface of the humeral head and osseous glenoid. There also intra-articular calcifications. In t he inferior recess there is a calcific density measuring 7 x 4 millimeters. In the medial subacromia l space above the osseous glenoid there is a 6 x 3 millimeter corticated density. Also noted is a finding similar to the opposite side which is significant diminution of the subacromi al space, indicating probable chronic rotator cuff full-thickness tearing. IMPRESSION: 1. Degenerative changes in the glenohumeral joint. Also some degenerative change in the AC joint. 2. Radiographic evidence of probable chronic full-thickness tear of the rotator cuff tendons. DATA REPOSITORY: RADIATION DOSE DELIVERED:
== END 2021-02-25 11:27 | disposition home or self-care (01) ==
LOC: DIORS 11:26
PROVIDERS: PCP Family Medicine; Referring Provider Family Medicine; Visit Provider Student in an Organized Health Care Education/Training Program
DX: M25.511 Pain in right shoulder (principal); M25.512 Pain in left shoulder; M75.101 Unspecified rotator cuff tear or rupture of right shoulder, not specified as traumatic; M75.102 Unspecified rotator cuff tear or rupture of left shoulder, not specified as traumatic; M12.811 Other specific arthropathies, not elsewhere classified, right shoulder; M12.812 Other specific arthropathies, not elsewhere classified, left shoulder; M54.6 Pain in thoracic spine
CPT/HCPCS: 99204; 99214; 73030

== ENCOUNTER → 2021-03-25 14:18 | Outpatient (BNVA) | payer MEDICARE, SELFPAY | PROVIDERS: PCP Family Medicine; Visit Provider Nurse Practitioner Gerontology | DX: N47.8 Other disorders of prepuce (principal); Z79.899 Other long term (current) drug therapy | CPT/HCPCS: 99213 ==

== ENCOUNTER → 2021-04-28 10:52 | Outpatient (BNVA) | payer MEDICARE, SELFPAY | PROVIDERS: PCP Family Medicine; Referring Provider Family Medicine; Visit Provider Student in an Organized Health Care Education/Training Program | DX: M12.811 Other specific arthropathies, not elsewhere classified, right shoulder (principal); M12.812 Other specific arthropathies, not elsewhere classified, left shoulder; M54.6 Pain in thoracic spine | CPT/HCPCS: 99212 ==

== ENCOUNTER → 2021-11-24 14:55 | Outpatient (BNVA) | payer MEDICARE, SELFPAY | PROVIDERS: PCP Family Medicine; Referring Provider Family Medicine; Visit Provider Nurse Practitioner Gerontology | DX: N47.8 Other disorders of prepuce (principal) | CPT/HCPCS: 99214 ==

== ENCOUNTER → 2022-03-25 14:42 | Outpatient (BNVA) | payer MEDICARE, SELFPAY | PROVIDERS: PCP Family Medicine; Referring Provider Family Medicine; Visit Provider Nurse Practitioner Gerontology | DX: N47.8 Other disorders of prepuce (principal) | CPT/HCPCS: 99214 ==

== ENCOUNTER 2022-03-29 17:52 | Outpatient (REF) | payer MEDICARE, SELFPAY ==
[2022-03-29 15:29] LABS: ALT 27 U/L (16-63); AST 29 U/L (15-37); Albumin 3.8 g/dL (3.4-5.0); Alkaline Phosphatase 75 U/L (46-116); Anion Gap 6.1 mmol/L (3-11); BUN 23 mg/dL (7-18); Bilirubin, Total 0.8 mg/dL (0.2-1.0); CO2 30.9 mmol/L (21.0-32.0); CREATININE 1.1 mg/dL (0.70-1.30); Chloride 102 mmol/L (98-107); Estimated GFR 66.61 (mL/min/1.73m2); Glucose 101 mg/dL (74-106); Potassium 4.4 mmol/L (3.5-5.1); Sodium 139 mmol/L (136-145); Total Protein 7.1 g/dL (6.4-8.2)
== END 2022-03-29 17:53 | disposition home or self-care (01) ==
LOC: LBN 17:52
PROVIDERS: PCP Family Medicine; Visit Provider Nurse Practitioner Family
DX: U07.1 COVID-19 (principal)
CPT/HCPCS: 80053

== ENCOUNTER → 2022-11-16 13:33 | Outpatient (BNVA) | payer MEDICARE, SELFPAY | PROVIDERS: PCP Family Medicine; Referring Provider Family Medicine; Visit Provider Nurse Practitioner Gerontology | DX: N47.8 Other disorders of prepuce (principal) | CPT/HCPCS: 99213 ==

== ENCOUNTER 2023-03-10 14:47 | Outpatient (REF) | payer MEDICARE, SELFPAY ==
[2023-03-10 20:07] LABS: Anion Gap 9.8 mmol/L (3-11); BUN 22 mg/dL (7-18); CO2 27.2 mmol/L (21.0-32.0); CREATININE 1.1 mg/dL (0.70-1.30); Calcium 9.3 mg/dL (8.5-10.1); Calculated LDL 44 mg/dL (<100); Chloride 104 mmol/L (98-107); Cholesterol 133 mg/dL (<200); Estimated GFR 66.19 (mL/min/1.73m2); Glucose 129 mg/dL (74-106); HDL Cholesterol 47 mg/dL (40-60); Sodium 141 mmol/L (136-145); Triglyceride 211 mg/dL (<150)
== END 2023-03-10 14:48 | disposition home or self-care (01) ==
LOC: NCHCN 14:47
PROVIDERS: PCP Family Medicine; Visit Provider Family Medicine
DX: I25.10 Atherosclerotic heart disease of native coronary artery without angina pectoris (principal)
CPT/HCPCS: 80048; 80061; 83735

== ENCOUNTER → 2023-04-12 08:08 | Outpatient (BNVA) | payer MEDICARE, SELFPAY | PROVIDERS: PCP Family Medicine; Referring Provider Family Medicine; Visit Provider Podiatrist | DX: B35.1 Tinea unguium (principal); L60.3 Nail dystrophy; I73.89 Other specified peripheral vascular diseases; I87.2 Venous insufficiency (chronic) (peripheral); R60.0 Localized edema | CPT/HCPCS: 11721; 99203 ==

== ENCOUNTER → 2023-07-12 10:42 | Outpatient (BNVA) | payer MEDICARE, SELFPAY | PROVIDERS: PCP Family Medicine; Referring Provider Family Medicine; Visit Provider Podiatrist | DX: L60.3 Nail dystrophy (principal); B35.1 Tinea unguium; I73.9 Peripheral vascular disease, unspecified; I87.2 Venous insufficiency (chronic) (peripheral); R60.0 Localized edema | CPT/HCPCS: 11721 ==

== ENCOUNTER → 2023-08-24 01:41 | Outpatient (CLI) | payer MEDICARE, SELFPAY ==
--- NOTE | 2023-08-24 | DI.US_ITS ---
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 DATA REPOSITORY:
== END ==
PROVIDERS: PCP Family Medicine; Visit Provider Family Medicine
DX: I71.40 Abdominal aortic aneurysm, without rupture, unspecified (principal)
CPT/HCPCS: 76775

== ENCOUNTER → 2023-09-16 10:34 | Outpatient (BNVA) | payer MEDICARE, SELFPAY | PROVIDERS: PCP Family Medicine; Referring Provider Family Medicine; Visit Provider Physical Therapy Assistant | DX: I73.9 Peripheral vascular disease, unspecified (principal); I87.2 Venous insufficiency (chronic) (peripheral) | CPT/HCPCS: 93922 ==

== ENCOUNTER 2023-10-04 11:38 | Outpatient (REF) | payer MEDICARE, SELFPAY ==
[2023-10-04 15:16] LABS: Abs Immature Grans 0.02 10^3/uL (0.0-0.06); Absolute Basophil Count 0.04 10^3/uL (0.0-0.2); Absolute Lymphocyte Count 2.21 10^3/uL (1.2-3.4); Absolute Neutrophil Count 3.23 10^3/uL (1.2-6.7); Basophils % 0.6; Eosinophils % 3.1; HCT 39.8 % (40.0-50.0); HGB 13.7 g/dL (13.5-17.5); Immature Grans % 0.3; Lymphocytes % 34.5; MCH 35.5 pg (27.0-33.0); MCHC 34.4 % (32.0-36.0); MCV 103 fL (80-95); MPV 9.3 fL (8.0-11.0); Monocytes % 10.9; Neutrophils % 50.6; Platelet Count 203 10^3/uL (130-400); RBC 3.86 10^6/uL (4.36-5.78); RDW 11.7 % (11.8-14.1); RDW-SD 43.8 fL
[2023-10-04 15:44] LABS: ALT 27 U/L (16-63); AST 21 U/L (15-37); Albumin 3.7 g/dL (3.4-5.0); Alkaline Phosphatase 103 U/L (46-116); Anion Gap 7.1 mmol/L (3-11); BUN 16 mg/dL (7-18); Bilirubin, Total 0.5 mg/dL (0.2-1.0); CO2 28.9 mmol/L (21.0-32.0); Chloride 106 mmol/L (98-107); Estimated GFR 74.21 (mL/min/1.73m2); Glucose 108 mg/dL (74-106); Potassium 4.2 mmol/L (3.5-5.1); Sodium 142 mmol/L (136-145); TSH (W/Ref FT4) 1.56 uIU/mL (0.36-3.74); Total Protein 6.7 g/dL (6.4-8.2)
[2023-10-04 15:52] LABS: Calcium 8.7 mg/dL (8.5-10.1)
== END 2023-10-04 11:39 | disposition home or self-care (01) ==
LOC: NCHCN 11:38
PROVIDERS: PCP Student in an Organized Health Care Education/Training Program; Visit Provider Student in an Organized Health Care Education/Training Program
DX: I10 Essential (primary) hypertension (principal)
CPT/HCPCS: 80053; 84443; 85025

== ENCOUNTER → 2023-11-09 14:19 | Outpatient (BNVA) | payer MEDICARE, SELFPAY | PROVIDERS: PCP Student in an Organized Health Care Education/Training Program; Referring Provider Family Medicine; Visit Provider Podiatrist | DX: L60.3 Nail dystrophy (principal); B35.1 Tinea unguium; I73.9 Peripheral vascular disease, unspecified; I87.2 Venous insufficiency (chronic) (peripheral); R60.0 Localized edema; R09.89 Other specified symptoms and signs involving the circulatory and respiratory systems; L65.9 Nonscarring hair loss, unspecified; R20.8 Other disturbances of skin sensation; R23.8 Other skin changes; L60.8 Other nail disorders | CPT/HCPCS: 11721 ==

== ENCOUNTER → 2024-02-08 14:23 | Outpatient (BNVA) | payer MEDICARE, SELFPAY | PROVIDERS: PCP Student in an Organized Health Care Education/Training Program; Referring Provider Student in an Organized Health Care Education/Training Program; Visit Provider Podiatrist | DX: L60.3 Nail dystrophy (principal); B35.1 Tinea unguium; I73.89 Other specified peripheral vascular diseases; I87.2 Venous insufficiency (chronic) (peripheral); R60.0 Localized edema | CPT/HCPCS: 11721 ==

== ENCOUNTER 2024-06-08 16:39 | Outpatient (REF) | payer MEDICARE, SELFPAY ==
--- OUTSIDE RECORDS SUMMARY | 2024-06-08 16:42 | XMS_ITS | Encounter Summary ---
Author Organization [facility] Address [facility] [place] [address] Care Team Providers Care Environmental Services Attendant Name Role Phone Ivan Leblanc MD Primary Care Provider [phone] Reason for Visit * Reason Comments Annual Exam Encounter Details Date Type Department Care Team (Late st Contact Info) Description 04/06/2022 11:00 AM EDT Office Visit Dermatology at [address] [place] [address] Marques Silva MD [address] [place] [address], [place] [address] Seborrheic keratosis; Seborrheic dermatitis Social History Tobacco Use Types Packs/Day Years Used Date Smoking Tobacco: Former Smokeless Tobacco: Never Sex and Gender Information Value Date Recorded Sex Assigned at Not on file Gender Identity Not on file Sexual Orientation Not on file documented as of this encounter Progress Notes * Marques Silva MD - 04/06/2022 11:00 AM EDT Problem: 1. ??Follow-up seborrheic dermatitis 2. ??Yearly skin checkup ?? Adeel follows up for his yearly skin checkup. Physical examination reveals a pleasant 81-year-old gentleman who is here today with his Barry. He like to have general skin checkup and he continues to do very well with his seborrheic dermatitis with his Qtern lotion and is medicated shampoo/creams. Physical examination reveals a pleasant 81-year-old gentleman who has a benign examination of the head and the neck the chest the back the hands arms forearms thighs and calves. He has a benign seborrheic keratosis on left superior shoulder. He has no active seborrheic dermatitis on the face. Assessment plan: Benign skin examination 1. Patient reassured about his benign skin examination 2. Recommend I see him again in a year for repeat check Seborrheic dermatitis 1. Continue Cutar lotion applying on a once or twice a day basis as needed for his facial seborrheic dermatitis. He orders this online from the company directly. 2. Continue selenium sulfide 2.5% lotion using as a shampoo as needed for scalp dispense 120 mL with 3 refills 3. Continue triamcinolone 0.1% cream applying sparingly once or twice daily as needed to facial areas of rash dispense 30 g with 3 refills. 4. Patient uses [facility] pharmacy in [place] 5. Return to clinic in a year for repeat check. ?? CC: Ivan Leblanc MD documented in this encounter Plan of Treatment Upcoming Encounters Date Type Department Care Team (Late st Contact Info) Description 04/12/2025 11:15 AM EST Office Visit Dermatology at [address] [phone] Marques Silva MD [address] [facility] [address] documented as of this encounter Visit Diagnoses Diagnosis Seborrheic keratosis Other seborrheic keratosis Seborrheic dermatitis Seborrheic dermatitis, unspecified documented in this encounter Care Teams Environmental Services Attendant Relationship Specialty Start Date End Date Ivan Leblanc MD PCP - General Family Medicine 03/15/17 documented as of this encounter
--- OUTSIDE RECORDS SUMMARY | 2024-06-08 16:42 | XMS_ITS | Data Portability ---
Author Organization [place] - [facility] Address [address] [place] [address] Assessment Encounter Date Assessment Date Assessment LastModified by Organization Details LastModified Time 02/17/2024 02/17/2024 Pt. had 2 falls while mowing so he has found a man to help him with the mowing. Not available 02/17/2024 10:54:01 Plan of Treatment Reminders Order Date Submit Date Provider Last Modified By Organization Details Last Modified Time Details Appointments Follow Up 30 2024 02:00P Neha Santizo Not available Not available Not available Lab influenza virus A + B + SARS-CoV- 2 (COVID19) Ag panel, rapid IA, upper respirato ry specimen 2022 023 [email or web address] [facility], [address], [place], [address], 06/03/2023 14:53:49 CBC w/ auto diff - 1 SST, 1 LAV [address] [facility] (Registration ), [address] [place] [address] [place], [address], 10/04/2023 16:10:00 CMP, serum or plasma [address] [facility] (Registration ), [address] [place] [address] [place], [address], 10/04/2023 16:10:00 TSH, serum, reflex free T4 2023 024 [facility] (Registration ), [address] [place] [address] [place] [facility] [place] [place], [address], 10/11/2023 08:21:33 CBC w/ auto diff - 1 Lav [address] [facility] (Registration ), [address] [place] [address] [place], [address], 06/08/2024 15:21:45 Referral plastic and reconstru ctive surgeon referral - Pt, 83-M, history of balanitis and chronic phimosis of foreskin, had been referred by his urologist back in 2022 for surgical evaluatio n for a revision circumcis ion. He manages with clotrimaz ole cream in the interim where he applies daily when it begins to bother him. 2024 025 [facility], [address] [place], [address], 06/08/2024 16:25:28 Procedures None recorded. Surgeries None recorded. Imaging US, abdominal aorta 2023 024 [email or web address] [facility], [address], [place], [address], 09/02/2023 14:27:57 Medication Orders azithromy qian 250 mg tablet 2022 023 [facility], [address] [place], [address], 10/04/2023 07:24:27 prednison e 20 mg tablet 2022 023 [facility], [address] [place], [address], 10/04/2023 07:25:39 clotrimaz ole 1 % topical cream 2024 025 [facility], [address] [place], [address], 06/08/2024 15:02:59 Patient TargetsNo targets recorded. Patient Instructions Encounter Date Encounter Id Patient Instructions Last Modified By Organization Details Last Modified Time 06/03/2023 [id number] take the prednisone and antibiotics for 5 days total call if you aren't feeling better. [email or web address] Not available 06/03/2023 13:44:06 06/08/2024 [id number] Please bring us a copy of your advanced directive if you can find it. Not available 06/08/2024 14:08:58 Reason for Referral Plastic And Reconstructive S urgeon Referral for Acquired phimosis Pt, 83-M, history of balanitis and chronic phimosis of foreskin, had been referred by his urologist back in 2022 for surgical evaluation for a revision circumcision. He manages with clotrimazole cream in the interim where he applies daily when it begins to bother him. Referring Physician: Markus Santizo, Family Medicine, Encounter Date: 06/08/2024 Results Created Date Observation Date Name Description Value Unit Range Abnormal Flag Note LastModifiedBy Organization Detail LastModifiedTime 06/03/20 23 06/03/2023 influ nisa virus A + B + SARS- CoV-2 (COVI D19) Ag panel , rapid IA, upper respi rator y speci men Influenza A negati ve Not Available [facility] [address], [place], [address], 06/03/2023 14:29:14 06/03/20 23 06/03/2023 influ nisa virus A + B + SARS- CoV-2 (COVI D19) Ag panel , rapid IA, upper respi rator y speci men Influenza B negati ve Not Available [facility] [address], [place], [address], 06/03/2023 14:29:14 06/03/20 23 06/03/2023 influ nisa virus A + B + SARS- CoV-2 (COVI D19) Ag panel , rapid IA, upper respi rator y speci men SARS-COV-2 negati ve Not Available [facility] [address], [place], [address], 06/03/2023 14:29:14 06/03/20 23 06/03/2023 influ nisa virus A + B + SARS- CoV-2 (COVI D19) Ag panel , rapid IA, upper respi rator y speci men Sample sent for PCR confirmation No Not Available [facility] [address], [place], [address], 06/03/2023 14:29:14 10/04/19 24 10/04/2023 COMPL ETE BLOOD COUNT W/DIF F WBC 6.40 10_3/ uL 4.4-10 .8 normal Not Available [address] [place], [address] 10/04/2023 15:19:14 10/04/19 24 10/04/2023 COMPL ETE BLOOD COUNT W/DIF F RBC 3.86 10_6/ uL 4.36-5 .78 low Not Available [address] [facility] [place], [address] 10/04/2023 15:19:14 10/04/19 24 10/04/2023 COMPL ETE BLOOD COUNT W/DIF F HGB 13.7 g/dL 13.5-1 7.5 normal Not Available [address] [place], [address] 10/04/2023 15:19:14 10/04/19 24 10/04/2023 COMPL ETE BLOOD COUNT W/DIF F HCT 39.8 % 40.0-5 0.0 low Not Available [address] [place], [address] 10/04/2023 15:19:14 10/04/19 24 10/04/2023 COMPL ETE BLOOD COUNT W/DIF F MCV 103 fL 80-95 high Not Available Khadra mark [address] [place], [address] 10/04/2023 15:19:14 10/04/19 24 10/04/2023 COMPL ETE BLOOD COUNT W/DIF F MCH 35.5 pg 27.0-3 3.0 high Not Available [address] [place], [address] 10/04/2023 15:19:14 10/04/19 24 10/04/2023 COMPL ETE BLOOD COUNT W/DIF F MCHC 34.4 % 32.0-3 6.0 normal Not Available [address] [place], [address] 10/04/2023 15:19:14 10/04/19 24 10/04/2023 COMPL ETE BLOOD COUNT W/DIF F RDW 11.7 % 11.8-1 4.1 low Not Available [address] [place], [address] 10/04/2023 15:19:14 10/04/19 24 10/04/2023 COMPL ETE BLOOD COUNT W/DIF F platelet count 203 10_3/ uL 130-40 0 normal Not Available [address] [place], [address] 10/04/2023 15:19:14 10/04/19 24 10/04/2023 COMPL ETE BLOOD COUNT W/DIF F MPV 9.3 fL 8.0-11 .0 normal Not Available [address] [place], [address] 10/04/2023 15:19:14 10/04/19 24 10/04/2023 COMPL ETE BLOOD COUNT W/DIF F neutrophils % 50.6 Not Available [address] [place], [address] 10/04/2023 15:19:14 10/04/19 24 10/04/2023 COMPL ETE BLOOD COUNT W/DIF F lymphocytes % 34.5 Not Available [address] [place], [address] 10/04/2023 15:19:14 10/04/19 24 10/04/2023 COMPL ETE BLOOD COUNT W/DIF F monocytes % 10.9 Not Available [address] [place], [address] 10/04/2023 15:19:14 10/04/19 24 10/04/2023 COMPL ETE BLOOD COUNT W/DIF F eosinophils % 3.1 Not Available [address] [place], [address] 10/04/2023 15:19:14 10/04/19 24 10/04/2023 COMPL ETE BLOOD COUNT W/DIF F basophils % 0.6 Not Available [address] [place], [address] 10/04/2023 15:19:14 10/04/19 24 10/04/2023 COMPL ETE BLOOD COUNT W/DIF F immature grans % 0.3 Not Available [address] [place], [address] 10/04/2023 15:19:14 10/04/19 24 10/04/2023 COMPL ETE BLOOD COUNT W/DIF F nucleated RBC 0.0 % 0.0-0. 3 normal Not Available [address] [place], [address] 10/04/2023 15:19:14 10/04/19 24 10/04/2023 COMPL ETE BLOOD COUNT W/DIF F absolute neutrophil count 3.23 10_3/ uL 1.2-6. 7 normal Not Available [address] [place], [address] 10/04/2023 15:19:14 10/04/19 24 10/04/2023 COMPL ETE BLOOD COUNT W/DIF F absolute lymphocyte count 2.21 10_3/ uL 1.2-3. 4 normal Not Available [address] [place], [address] 10/04/2023 15:19:14 10/04/19 24 10/04/2023 COMPL ETE BLOOD COUNT W/DIF F absolute monocyte count 0.70 10_3/ uL 0.1-0. 8 normal Not Available [address] [place], [address] 10/04/2023 15:19:14 10/04/19 24 10/04/2023 COMPL ETE BLOOD COUNT W/DIF F absolute eosinophil count 0.20 10_3/ uL 0.0-0. 7 normal Not Available [address] [place], [address] 10/04/2023 15:19:14 10/04/19 24 10/04/2023 COMPL ETE BLOOD COUNT W/DIF F absolute basophil count 0.04 10_3/ uL 0.0-0. 2 normal Not Available [address] [place], [address] 10/04/2023 15:19:14 10/04/19 24 10/04/2023 COMPR EHENS JAYNE METAB OLIC PANEL calcium 8.7 mg/dL 8.5-10 .1 normal Not Available [address] [place], [address] 10/04/2023 15:57:31 10/04/19 24 10/04/2023 COMPR EHENS JAYNE METAB OLIC PANEL glucose 108 mg/dL 74-106 high Not Available Khadra mark [address] [place], [address] 10/04/2023 15:57:31 10/04/19 24 10/04/2023 COMPR EHENS JAYNE METAB OLIC PANEL BUN 16 mg/dL 7-18 normal Not Available Khadra [address] [place], [address] 10/04/2023 15:57:31 10/04/19 24 10/04/2023 COMPR EHENS JAYNE METAB OLIC PANEL creatinine 1.0 mg/dL 0.70-1 .30 normal Not Available [address] [place], [address] 10/04/2023 15:57:31 10/04/19 24 10/04/2023 COMPR EHENS JAYNE METAB OLIC PANEL estimated GFR 74.21 mL/min /1.73m 2 The eGFR is calcu lated from a serum creat inine using the CKD-E PI 2020 equat ion. Other varia bles requi red for the equat ion are gende r and age; this equat ion does not inclu de a race coeff icien t. This equat ion has simil ar overa ll perfo rmanc e to previ ous equat ions excep t value s may diffe r, in parti cular , in patie nts with highe r value s of eGFR and young er-ag ed adult s. Not Available [address] [place], [address] 10/04/2023 15:57:31 10/04/19 24 10/04/2023 COMPR EHENS JAYNE METAB OLIC PANEL total protein 6.7 g/dL 6.4-8. 2 normal Not Available [address] [place], [address] 10/04/2023 15:57:31 10/04/19 24 10/04/2023 COMPR EHENS JAYNE METAB OLIC PANEL albumin 3.7 g/dL 3.4-5. 0 normal Not Available [address] [place], [address] 10/04/2023 15:57:31 10/04/19 24 10/04/2023 COMPR EHENS JAYNE METAB OLIC PANEL bilirubin, total 0.5 mg/dL 0.2-1. 0 normal Not Available [address] [place], [address] 10/04/2023 15:57:31 10/04/19 24 10/04/2023 COMPR EHENS JAYNE METAB OLIC PANEL alk phos 103 U/L 46-116 normal Not Available [address] [place], [address] 10/04/2023 15:57:31 10/04/19 24 10/04/2023 COMPR EHENS JAYNE METAB OLIC PANEL sodium 142 mmol/ L 136-14 5 normal Not Available [address] [place], [address] 10/04/2023 15:57:31 10/04/19 24 10/04/2023 COMPR EHENS JAYNE METAB OLIC PANEL potassium 4.2 mmol/ L 3.5-5. 1 normal Not Available [address] [place], [address] 10/04/2023 15:57:31 10/04/19 24 10/04/2023 COMPR EHENS JAYNE METAB OLIC PANEL chloride 106 mmol/ L 98-107 normal Not Available [address] [place], [address] 10/04/2023 15:57:31 10/04/19 24 10/04/2023 COMPR EHENS JAYNE METAB OLIC PANEL CO2 28.9 mmol/ L 21.0-3 2.0 normal Not Available [address] [place], [address] 10/04/2023 15:57:31 10/04/19 24 10/04/2023 COMPR EHENS JAYNE METAB OLIC PANEL anion gap 7.1 mmol/ L 3-11 normal Not Available [address] [place], [address] 10/04/2023 15:57:31 10/04/19 24 10/04/2023 COMPR EHENS JAYNE METAB OLIC PANEL AST 21 U/L 15-37 normal Not Available [address] [place], [address] 10/04/2023 15:57:31 10/04/19 24 10/04/2023 COMPR EHENS JAYNE METAB OLIC PANEL ALT 27 U/L 16-63 normal Not Available [address] [place], [address] 10/04/2023 15:57:31 10/04/19 24 10/04/2023 TSH (W/RE F FT4) TSH (w/ref FT4) 1.56 uIU/m L 0.36-3 .74 normal Not Available [address] [place], [address] 10/04/2023 15:48:23 10/04/19 24 10/04/2023 TSH (W/RE F FT4) TSH (w/ref FT4) 1.56 uIU/m L 0.36-3 .74 normal Not Available [address] [place], [address] 10/04/2023 15:57:32 08/24/19 24 08/24/2023 US, abdom inal aorta Patien t Name: YolandeMathewremi tt Unit #: [id number] Loc: GARRY Ganti ng Provid er: Roderick Leblanc t #: [id number] Status : REG CLI Primar y Care Provid er: Roderick Leblanc Date of Exam: Sex: M Admiss ion Date: : 1940 Age: 82 Exam(s ) US AAA DIAGNO STIC EXAM: US AAA DIAGNO STIC CLINIC AL HISTOR Y: F/U AAA,I7 1.40 COMPAR ASAEL: US US AAA DIAGNO STIC from 2019 FINDIN GS: Abdomi nal Aorta: Proxim al: 3.0 cm Mid: 3.1 cm Distal : 3.4 cm Iliacs : Right: 1.4 cm Left: 1.5 cm IMPRES GREGG: Mild dilata tion of the distal abdomi nal aorta to 3.4 cm. DATA REPOSI TORY: Aniceto d By: Deana Roderick CC: ------ ------ ------ ------ ------ ------ ------ ------ ------ ------ ------ ------ - Dictat ed By: Veronique Johnson [id number] Transc ribed By: Michael Jennings 1126 This is privil eged, confid ential inform ation intend ed only for the provid er named. Any use or distri bution by any person other than this [facility] er is strict ly prohib ited. If you receiv e this report in error, please notify us immjosie naik at and return the origin al report to us at the addres s above. Thank- you. [email or web address] [address] [place], [address] 09/02/2023 14:27:57 09/16/1909/16/2023 ankle brach ial index No observ ation record ed. [email or web address] [facility] [address] [place] [address] [place], [address], 09/19/2023 11:48:06 02/20/20 24 02/17/2021 imagi ng/di agnos tic resul t No observ ation record ed. [email or web address] Not Available 02/19 01:35:16 02/20/20 24 03/18/2020 imagi ng/di agnos tic resul t No observ ation record ed. [email or web address] Not Available 02/19 01:35:17 02/20/20 24 02/25/2021 imagi ng/di agnos tic resul t No observ ation record ed. [email or web address] Not Available 02/19 01:35:20 02/20/20 24 02/25/2021 imagi ng/di agnos tic resul t No observ ation record ed. [email or web address] Not Available 02/19 01:35:21 02/20/20 24 03/06/2019 imagi ng/di agnos tic resul t No observ ation record ed. [email or web address] Not Available 02/19 01:36:19 02/20/20 24 06/11/2020 imagi ng/di agnos tic resul t No observ ation record ed. [email or web address] Not Available 02/19 01:37:27 Result Notes None recorded. Problems Name Problem SNOMED Code Status Onset Date Resolution Date Notes Provider Name and Address Organization Details Recorded Time Zaid saleh 05882541 Active 2024 KAREN LOPEZ [address], [place], [address] , [facility] 13:59:16 Acquired phimosis 646306772 Active [address], [place], [address] , [facility] 14:01:50 Anemia 472993699 Active [address], [place], [address] , [facility] 01/03/202 5 14:30:01 [facility] 538841979 [facility] 15:20:27 Hyperlip idemia 93086120 Active 2014 [facility] 4 15:20:12 Atherosc lerosis of coronary artery without angina pectoris 75612905514 4103 Active 2014 [facility] 4 15:18:38 Genitour inary symptoms 551432907 Active 2014 [facility] 4 15:19:52 Osteoart hritis 150752125 Active 2014 [facility] 4 15:20:40 Obstruct jayne sleep apnea syndrome 85563155 Active 2014 [facility] 4 15:20:36 Chronic obstruct jayne pulmonar y disease 10292118 Active 2014 [facility] 4 15:19:01 Adult health examinat ion Active 2015 [facility] 4 15:18:27 Abdomina l aortic aneurysm 813456574 Active 2015 [facility] 4 15:18:15 Seborrhe ic dermatit is 98594092 Active 2015 MICHELLE gloria, [facility] 4 15:21:01 Constipa tion 22298804 Active 2016 [facility] 4 15:19:06 Pharynge al dysphagi a 03124377033 105 Active 2016 [facility] 4 15:20:45 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 4 15:21:14 Localize d edema 913465516 Active 2016 MICHELLE gloria, [facility]. 4 15:20:23 Disorder of hematopo ietic structur e 238310590 Active 2017 MICHELLE gloria, [facility] 4 15:19:33 Cataract 319531068 Active 2018 [facility] 4 15:18:49 Actinic keratosi s 129193293 Active 2018 [facility] 4 15:18:22 Impingem ent syndrome of shoulder region 210161941 Completed 201810/04/2023 KAREN LOPEZ [address], [place], [address] , [facility] 4 07:27:09 Atopic dermatit is 89788427 Active 2019 MICHELLE AGUILERA [facility] 4 15:18:43 Dizzines s and giddines s 089219278 Completed 202007/14/2020 06/23/19 21 - Comments only - Alba Paniagua s - Dizzy spells due to cerumin obstruct ion of ear canal. Episodes resolved with Debrox ear drops. Continue to use Debrox drops and return to clinic if dizzy spells reoccur. Problem Code: R42; Problem Code Type: ICD-10; Not Available [facility] 3 04:35:10 Rupture of rotator cuff of left shoulder 48505516117 981263 Active 2020 [facility] 4 15:20:55 Phimosis 049636131 Active 2020 MICHELLE gloria, [facility] 4 15:20:50 Cervical radiculo kristina 77840957 Active 2020 MICHELLE gloria, [facility] 4 15:18:56 Contact dermatit is 57610955 Active 2021 MICHELLE gloria, [facility] 4 15:19:11 Dystroph ia unguium 44769206 Active 2021 MICHELLECollins gloria, [facility] 4 15:19:38 Hammer toe 465132083 Active 2021 [facility] 4 15:19:57 History of infectio us disease 927755235 Active 2021 [facility] 4 15:20:05 Spasm 28900768 Active 2022 [facility] 4 15:21:06 Acute exacerba tion of chronic obstruct jayne pulmonar y disease 752286931 Completed 202202/09/2023 Problem Code: J44.1; Problem Code Type: ICD-10; RODERICK LEBLANC MD [address], [place], [address] , [facility] 4 14:15:44 Localize d eruption of skin 210628455 Completed 201903/02/2023 06/22/19 20 - Comments only - Andrsesa Dominguez [employer] - Presenta tion consiste nt with follicul ar contact dermatit is; possibly exacerba tion of venous stasis dermatit is (though no rubor to area noted). Refilled prescrip tion for triamcin olone cream 0.1% and advised pt to avoid scented soaps to avoid skin irritati on. Pt to f/u if no improvem ent after 5-7 days of treatmen t, sooner if any concerns . Problem Code: R21; Problem Code Type: ICD-10; Not Available [facility] 3 04:35:11 Hemoptys is 60191481 Completed 201811/28/2019 Problem Code: R04.2; Problem Code Type: ICD-10; Not Available [facility] 3 04:35:11 Cough 53245397 Completed 202209/30/2022 Problem Code: R05.8; Problem Code Type: ICD-10; Not Available [facility] 3 04:35:11 Abrasion , abdomina l wall 739247302 Completed 202103/02/2023 Problem Code: S30.811A ; Problem Code Type: ICD-10; Not Available [facility] 3 04:35:11 Chest pain 78328475 Completed 201511/13/2015 Problem Code: R07.89; Problem Code Type: ICD-10; Not Available [facility] 3 04:35:12 Recurren t aphthous stomatit is 623522901 Completed 201811/28/2019 Problem Code: K12.0; Problem Code Type: ICD-10; Not Available [facility] 3 04:35:12 Impacted cerumen in right ear 71093634891 58823 Completed 201710/05/2017 Problem Code: H61.21; Problem Code Type: ICD-10; Not Available [facility] 3 04:35:12 Acute pharyngi tis 448104965 Completed 202109/07/2022 Problem Code: J02.9; Problem Code Type: ICD-10; Not Available [facility] 3 04:35:12 Benign prostati c hyperpla saqib 981707854 Completed 201305/04/2015 Not Available [facility] 3 04:35:12 Pleuriti c pain 4583513 Completed 201510/05/2017 Problem Code: R07.81; Problem Code Type: ICD-10; Not Available [facility] 3 04:35:13 Paresthe saqib 75996984 Completed 202004/06/2021 Problem Code: R20.2; Problem Code Type: ICD-10; Not Available [facility] 3 04:35:13 Chronic obstruct jayne pulmonar y disease 58542720 Completed 200405/04/2015 MICHELLE gloria, [facility]. 4 15:19:01 Obesity 082260676 Completed 200405/04/2015 MICHELLE gloria [facility]. 4 15:20:27 Hyperlip idemia 35719577 Completed 201305/04/2015 MICHELLE gloria, [facility] 4 15:20:12 Neck pain 89624941 Completed 201710/05/2017 Problem Code: M54.2; Problem Code Type: ICD-10; Not Available [facility] 3 04:35:13 Pain in right hip joint 91491055831 9102 Completed 201804/06/2021 Problem Code: M25.551; Problem Code Type: ICD-10; Not Available [facility] 3 04:35:14 Disorder of skin and/or subcutan eous tissue 24643715 Completed 201605/09/2017 Problem Code: L98.9; Problem Code Type: ICD-10; Not Available [facility] 3 04:35:14 Acute sinusiti s 78665369 Completed 202212/08/2022 Problem Code: J01.90; Problem Code Type: ICD-10; Not Available [facility] 3 04:35:14 Knee joint effusion 240003373 Completed 201710/05/2017 Problem Code: M25.469; Problem Code Type: ICD-10; Not Available [facility] 3 04:35:14 COVID-19 441219687 Completed 202104/13/2022 Problem Code: U07.1; Problem Code Type: ICD-10; Not Available [facility] 3 04:35:14 Pain in thoracic spine 537263262 Completed 201704/04/2018 02/17/20 21 - Comments only - Roderick Leblanc MD - Exam strongly points to muscular pain with local tenderne ss and tightnes s. Not c/w compress ion fx or other spinal injury. Not a/w neurolog ic symptoms /radiati on, though he has that history. Not c/w rotator cuff. Given this, treat with topical menthol and diclofen ac, short term muscle relaxor. Offered trigger point injectio n, but declines . Problem Code: M54.9; Problem Code Type: ICD-10; Not Available [facility] 3 04:35:15 Impingem ent syndrome of left shoulder region 65004091431 9104 Completed 201803/02/2023 08/26/19 21 - Comments only - Roderick Leblanc MD - Appears unrealte d to new tingling , but has cynthia limitati on to ROM above head. Would like to do some more PT, referral placed. Problem Code: M75.42; Problem Code Type: ICD-10; Not Available [facility] 3 04:35:15 Obstruct jayne sleep apnea syndrome 53651872 Completed 201305/04/2015 MICHELLE gloria [place] - [facility] 4 15:20:36 Osteoart hritis 210946693 Completed 200505/04/2015 Problem Code: 715.90; Problem Code Type: ICD-9; MICHELLE gloria [place] - [facility]. 4 15:20:40 Coronary arterios clerosis 33550104 Completed 200405/04/2015 Not Available [facility] 3 04:35:15 Benign prostati c hyperpla saqib 219058540 Completed 201403/02/2023 05/10/20 16 - Comments only - Roderick Leblanc MD - contine finaster [facility] Problem Code: N40.0; Problem Code Type: ICD-10; Not Available [facility] 3 04:35:16 Arthralg ia of the ankle and/or foot 734673729 Active 2022 MICHELLE gloria, [facility] 15:18:33 [facility]ia l hyperten gregg 35523282 Active [address], [place], [address] , [facility] 07:27:21 Edema of lower extremit y 169139383 Active [address], [place], [address] , [facility] 08:57:59 Problem Notes None recorded. Procedures Surgical History None recorded. Imaging Results Imaging Date Name Status LastModified by Organiz ation Details LastModified Time 08/24/2023 US, abdominal aorta completed [email or web address] [address] [place], [address] 09/02/2023 14:27:57 09/16/2023 ankle brachial index completed [email or web address] [facility] [address] [place] [address] [place], [address], 09/19/2023 11:48:06 02/17/2021 imaging/diagno stic result completed Information not available 02/20/2024 01:35:16 03/18/2020 imaging/diagno stic result completed Information not available 02/20/2024 01:35:17 02/25/2021 imaging/diagno stic result completed Information not available 02/20/2024 01:35:20 02/25/2021 imaging/diagno stic result completed Information not available 02/20/2024 01:35:21 03/06/2019 imaging/diagno stic result completed Information not available 02/20/2024 01:36:19 06/11/2020 imaging/diagno stic result completed Information not available 02/20/2024 01:37:27 Procedure Notes None recorded. Medical Equipment None Reported. Allergies Allergen ID Allergen Name Allergen Category Reaction Reaction Severity Criticality Documentation Date Start Date Code Code System Note Provider Name and Address Organization Details Recorded Time 73201 Combivent medicatio n dyspnea mild Not available 04/15/20232009 91930 9 RxNorm DYSPN EA Not Available [facility] 3 16:22:04 78319 acetamino phen / hydrocodo ne medicatio n hallucina tions mild Not available 04/15/20232011 44641 2 RxNorm hallu cinat ion Aller gyRea ction : 'rosales ucina tion' ; Aller gyCod e: '[id number]'; Aller gyNam e: 'JANAE DIN'; Aller gyCon ceptT ype: 'NDC' ; Not Available [facility] 3 16:22:04 Medications Name Sig Start Date Stop Date Status Note LastModified by Organization Details LastModified Time celecoxib 200 mg capsule 1 TAB BID 08/03 completed Not Available Not Available Not Available cyclobenz aprine 10 mg tablet 1 tab .tid prn muscle spasm 11/21 completed Not Available Not Available Not Available Miralax 17 gram/dose oral powder Take 17 grams (1 tablespo on) by mouth daily. Mix in 8 0z of liquid. Take as needed for hard stools 11/10 completed Not Available Not Available Not Available atorvasta tin 40 mg tablet TAKE ONE TABLET BY MOUTH AT BEDTIME active Not Available Not Available No t Available prednison e 10 mg tablet 4 tabs x 2 days, 3 tabs x 2 days, 2 tabs x 2 days and 1 tab x 2 days 06/08 completed Not Available Not Available Not Available tizanidin e 2 mg tablet Take 1 tablet by mouth three times a day as needed for pain FOR MUSCLE TIGHTNES S 03/18 completed Not Available Not Available Not Available azithromy qian 250 mg tablet TAKE TWO TABLETS BY MOUTH AT ONCE ON THE FIRST DAY THEN TAKE ONE DAILY THEREAFT ER 10/03 completed Not Available Not Available Not Available hydrocort isone valerate 0.2 % topical cream cream .bid prn rash 01/22 completed Not Available Not Available Not Available metoprolo l succinate ER 50 mg tablet,ex tended release 24 hr Take 1 by mouth daily 2013 active Not Available Not Available Not Avai lable tolterodi ne ER 4 mg capsule,e xtended release 24 hr TAKE ONE CAPSULE BY MOUTH EVERY DAY active Not Available Not Available No t Available urea 40 % topical cream APPLY TO toenails daily active 07/12/23 [facility] [place] Not Available Not Available Not Available Medrol (Quintin) 4 mg tablets in a dose pack Take 1 tablet by mouth as directed followin g package instruct ions 03/08 completed Not Available Not Available Not Available prednison e 20 mg tablet TAKE TWO TABLETS BY MOUTH EVERY DAY FOR 5 DAYS 10/03 completed Not Available Not Available Not Available tramadol 50 mg tablet Take 1 tablet by mouth every twelve hours as needed 03/02 completed Not Available Not Available Not Available triamcino lone acetonide 0.1 % topical cream APPLY TO AFFECTED AREA(S) TWO TIMES A DAY NEEDED FOR ALLERGIC RASH active Not Available Not Available No t Available simvastat in 40 mg tablet Take 1tablet by mouth at bedtime 2014 active Not Available Not Available Not Avai lable triamcino lone acetonide 0.1 % dental paste Apply by mouth 01/12 completed Not Available Not Available Not Available tamsulosi n 0.4 mg capsule 1 qhs 07/02 completed Not Available Not Available Not Available Flagyl 500 mg tablet 1 TAB BID 01/04 completed Not Available Not Available Not Available hydrocort isone 1 % topical cream APPLY BID 01/22 completed Not Available Not Available Not Available Cipro 500 mg tablet 1 TAB BID 01/04 completed Not Available Not Available Not Available Keflex 500 mg tablet 1 tid 06/11 completed Not Available Not Available Not Available prednison e 50 mg tablet one po daily x 5 days 06/28 completed Not Available Not Available Not Available docusate sodium 100 mg capsule 1 CAP .prn 03/14 completed Not Available Not Available Not Available cephalexi n 500 mg tablet 1CAP three times daily 03/30 completed Not Available Not Available Not Available aspirin 81 mg tablet Take 1 tablet once a day 2015 active Not Available Not Available Not Avai lable mupirocin 2 % topical ointment apply to affected skin BID, cover with bandage 05/26 completed Not Available Not Available Not Available zolpidem 5 mg tablet 1TAB .qhs for sleep 10/19 completed Not Available Not Available Not Available furosemid e 20 mg tablet TAKE ONE TABLET BY MOUTH EVERY DAY active Not Available Not Available No t Available metoprolo l succinate ER 25 mg tablet,ex tended release 24 hr TAKE ONE TABLET BY MOUTH EVERY DAY active Not Available Not Available No t Available Aspir-81 mg tablet,de layed release take 1 tab daily 2015 active Not Available Not Available Not Avai lable ibuprofen 600 mg tablet 1 tab .tid prn pain 09/15 completed Not Available Not Available Not Available ketoconaz ole 2 % topical cream APPLY TO TOENAILS ONCE DAILY FOR 3 MONTHS active Not Available Not Available No t Available clotrimaz ole 1 % topical cream Apply a small amount to affected area twice a day foreskin 2024 active Not Available Not Available Not Avai lable doxycycli ne hyclate 100 mg tablet Take 1 tab by mouth BID x 1 week 07/03 completed Not Available Not Available Not Available finasteri de 5 mg tablet TAKE ONE TABLET BY MOUTH EVERY EVENING active Not Available Not Available No t Available fluticaso ne propionat e 110 mcg/actua tion HFA aerosol inhaler 2 puff bid 07/24 completed Not Available Not Available Not Available amoxicill in 875 mg-potass ium clavulana te 125 mg tablet 1 tablet by mouth twice a day 09/06 completed Not Available Not Available Not Available solifenac in 5 mg tablet TAKE ONE TABLET BY MOUTH EVERY DAY FOR URINATIO N 08/12 completed Not Available Not Available Not Available Tylenol-C odeine #3 2TAB .before PT 11/21 completed Not Available Not Available Not Available aloe vera takes 1/2 cup BID 2016 active Not Available Not Available Not Avai lable Combivent 2 puff qid 10/22 completed Not Available Not Available Not Available Zostavax (PF) 19,400 unit/0.65 mL subcutane ous suspensio n 1 vial injectio n once 05/10 completed Not Available Not Available Not Available Pulmicort Flexhaler 180 mcg/actua tion breath activated 1 inhalati on by mouth twice daily 01/03 completed Not Available Not Available Not Available diclofena c 1 % topical gel Apply as directed to affected area four times a day 2020 active Not Available Not Available Not Avai lable melatonin 5 mg tablet Take 1 tablet by mouth every night as needed 06/08 completed Not Available Not Available Not Available Myrbetriq 25 mg tablet,ex tended release TAKE ONE TABLET BY MOUTH EVERY DAY 10/07 completed Not Available Not Available Not Available selenium sulfide 2.5 % lotion apply to scalp twice a week, rinse out after 5 minutes- alternat e q 2 weeks with nizoral shampoo 2014 active Not Available Not Available Not Avai lable Paxlovid 300 mg (150 mg x 2)-100 mg tablets in a dose pack 3 tablet by mouth twice a day 04/03 completed Not Available Not Available Not Available Vitals Date Recorded Body height Oxygen saturation Oxygen saturation in Arterial blood by Pulse oximetry Heart rate Body mass index (BMI) Body weight Body temperature Systolic blood pressure Diastolic blood pressure Provider Name and Address Organization Details Last Updated DateTime 3 165.735 cm 97 % 97 % 64 /min 32.5 kg/m2 72644.2 6 g 97.7 [degF] 120 mm[Hg] 74 mm[Hg] AVI TOMAS [place] [facility] 3 13:25:09 Date Recorded Body height Body mass index (BMI) Body weight Body temperature Oxygen saturation Oxygen saturation in Arterial blood by Pulse oximetry Heart rate Respiratory rate Systolic blood pressure Diastolic blood pressure Provider Name and Address Organization Details Last Updated DateTime 4 165.735 cm 33.2 kg/m2 29822.0 7 g 98.2 [degF] 93 % 93 % 67 /min 20 /min 106 mm[Hg] 60 mm[Hg] TAINA SAHU RN [facility] 4 13:29:45 Date Recorded Body height Body mass index (BMI) Body weight Body temperature Oxygen saturation Oxygen saturation in Arterial blood by Pulse oximetry Heart rate Systolic blood pressure Diastolic blood pressure Provider Name and Address Organization Details Last Updated DateTime 4 165.735 cm 33.6 kg/m2 64827.4 1 g 98.2 [degF] 98 % 98 % 61 /min 110 mm[Hg] 58 mm[Hg] AVI TOMAS MA [facility] 4 08:00:59 Date Recorded Body height Body mass index (BMI) Body weight Body temperature Heart rate Oxygen saturation Oxygen saturation in Arterial blood by Pulse oximetry Systolic blood pressure Diastolic blood pressure Provider Name and Address Organization Details Last Updated DateTime 4 165.735 cm 32.5 kg/m2 49402.7 g 98.8 [degF] 57 /min 99 % 99 % 104 mm[Hg] 66 mm[Hg] AVI TOMAS MA [facility] 4 10:06:39 Date Recorded Body height Body mass index (BMI) Body weight Body temperature Oxygen saturation Oxygen saturation in Arterial blood by Pulse oximetry Heart rate Systolic blood pressure Diastolic blood pressure Provider Name and Address Organization Details Last Updated DateTime 5 165.735 cm 33.3 kg/m2 71277.9 4 g 98.4 [degF] 96 % 96 % 60 /min 118 mm[Hg] 68 mm[Hg] AVI TOMAS MA [facility] 5 13:34:52 Social History None recorded. Functional Status None recorded. Mental Status None recorded. Family History Relationship Description Onset Age of this Age Resolved Age Notes LastModified by Organization Details LastModified Time Father Family history of malignant neoplasm [email or web address] Not available 2022 04:00:38 Mother Family history of malignant neoplasm [email or web address] Not available 2022 04:00:39 Mother Family history of diabetes mellitus type 1 [email or web address] Not available 2022 04:00:39 Notes:*Problem: Mother: dece ased age 80+ cause abdominal mass. Father: age 70+ cause prostate CA. Family History of: Diabetes mellitus: yes Sisters & M Alcoholism: yes B Other: yes Asthma - B; Cancer - F & M; emphysema - B; glaucoma - M; seizures - B; ulcers - M. Medical History No medical history recorded. Immunizations Vaccine Type Date Status Note Provider Nam e and Address Organization Details Recorded Time Tdap 1 completed Not Available [facility] 04/15/2023 04:30:54 Tdap 2 completed Not Available [facility] 04/15/2023 04:30:55 zoster live 6 completed Not Available [facility] 04/15/2023 04:30:55 Pneumococcal conjugate PCV 13 7 completed Not Available [facility] 04/15/2023 04:30:55 Td(adult) unspecified formulation 9 completed Not Available [facility] 04/15/2023 04:30:55 Td(adult) unspecified formulation 8 completed Not Available [facility] 04/15/2023 04:30:56 Influenza, split virus, trivalent, preservative 5 completed Not Available [facility] 04/15/2023 04:30:56 Influenza, split virus, trivalent, preservative 6 completed Not Available [facility] 04/15/2023 04:30:56 Influenza, split virus, quadrivalent, preservative 7 completed Not Available [facility] 04/15/2023 04:30:56 Influenza, high-dose, quadrivalent, PF 0 completed Not Available [facility] 04/15/2023 04:30:56 Influenza, high-dose, quadrivalent, PF 1 completed Not Available [facility] 04/15/2023 04:30:56 COVID-19, mRNA, LNP-S, PF, 100 mcg/0.5mL dose or 50 mcg/0.25mL dose 1 completed Not Available [facility] 04/15/2023 04:30:57 SARS-COV-2 (COVID-19) vaccine, UNSPECIFIED 1 completed Not Available [facility] 04/15/2023 04:30:57 SARS-COV-2 (COVID-19) vaccine, UNSPECIFIED 1 completed Not Available [facility] 04/15/2023 04:30:57 SARS-COV-2 (COVID-19) vaccine, UNSPECIFIED 2 completed Not Available [facility] 04/15/2023 04:30:57 pneumococcal polysaccharide PPV23 5 completed Not Available [facility] 04/15/2023 04:30:57 influenza, unspecified formulation 2 completed Not Available [facility] 04/15/2023 04:30:57 influenza, unspecified formulation 4 completed Not Available [facility] 04/15/2023 04:30:57 influenza, unspecified formulation 3 completed Not Available [facility] 04/15/2023 04:30:57 influenza, unspecified formulation 8 completed Not Available [facility] 04/15/2023 04:30:58 COVID-19, mRNA, LNP-S, PF, adela-sucrose, 30 mcg/0.3 mL [address], [place], [address], [facility] 02/17/2024 10:27:11 Influenza, high-dose, quadrivalent, PF 3 completed Not Available [facility] 06/17/2023 05:33:13 COVID-19, mRNA, LNP-S, PF, adlea-sucrose, 30 mcg/0.3 mL 3 completed Not Available [facility] 06/17/2023 05:33:13 Influenza, high-dose, trivalent, PF [address], [place], [address], [facility] 06/08/2024 14:34:29 Past Encounters Encounter ID Performer Location Encounter Start Date Encounter Closed Date Diagnosis/Indication Diagnosis SNOMED-CT Code Diagnosis ICD10 Code [id number] RODERICK LEBLANC MD [facility] [address] [place] [address] 06/03/2023 13:10:14 06/03/2023 14:32:40 Acute exacerbation of chronic obstructive pulmonary disease 005062372 J44.1 [id number] RODERICK LEBLANC MD [facility] [address] [place] [address] 08/19/2023 12:56:21 08/19/2023 14:34:32 Abdominal aortic aneurysm 698652224 I71.40 Chronic ob structive pulmonary disease 92593879 J44.9 [id number] KAREN LOPEZ [facility] [address] [place] [address] 10/04/2023 07:37:12 10/04/2023 09:31:28 Essential hypertension 08720285 I10 Obstructiv e sleep apnea syndrome 88124951 G47.33 Chronic ob structive pulmonary disease 59779434 J44.9 Abdominal aortic aneurysm 173718276 I71.40 Edema of l ower extremity 385483812 R60.0 [id number] KAREN LOPEZ [facility] [address] [place] [address] 02/17/2024 09:51:40 02/17/2024 11:04:19 Hyperlipidemia 22393835 E78.5 Localized edema 77129574 4 R60.0 Chronic ob structive pulmonary disease 04503476 J44.9 Atheroscle rosis of coronary artery without angina pectoris 1469031801 62161 I25.10 Active or passive immunization 365781231 Z23 [id number] KAREN LOPEZ [facility] [address] [address] 06/08/2024 12:52:44 06/08/2024 15:37:07 Active or passive immunization 886140290 Z23 Balanitis 63333138 N48.1 Acquired phimosis 436986 009 N47.1 Anemia 477682962 D64.9 Health Concerns Section Related Observation LastModified by Organization Detai ls LastModified Time None Recorded Concern Status LastModified by Organization Details LastModified Time None Recorded Advance Directives Directive None Recorded Payers Encounter Date Sequence Insurance Name Policy Number Policy Barcenas Covered Member ID Barcenas Member ID Guarantor Name 06/03/2023 1 [place] [employer] Adeel Carbee [id number] 2 Adeel Carbee 08/19/2023 1 [place] [employer] Adeel Carbee [id number] 2 Adeel Carbee 10/04/2023 1 [place] [facility] Adeel Carbee [id number] 2 Adeel Carbee 02/17/2024 1 [place] [facility] Adeel Carbee [id number] 2 Adeel Carbee 06/08/2024 1 [place] [facility] Adeel Carbee [id number] 2 Adeel Carbee Notes Date Note Type Note Provider Name and Address Organization Details Recorded Time 06/03/2023 text/html Here with about one week of cough and runny nose. Feels like getting wheezey and a little short of breath. No fever. Coughing up more phlegm, yellow and ambrosio. MD Deena [address], [place], [address], [facility], [facility]. 06/03/2023 15:40:04 08/19/2023 text/html Here for follow up. He feels better in terms of breathing since last visit. He feels well otherwise. no chest pain. MD Deena [address], [place], [address], [facility], [facility]. 08/19/2023 15:02:00 10/04/2023 text/html Pt, 82-M, here t o establish care w/new provider. He has multiple chronic conditions including obesity, WILDA, seborrheic dermatitis (sees dermatology yearly for skin care, localized edema/veinous insufficiency, COPD: COPD: Per Dr. Leblanc's last note, he does not tolerate bronchodilators. Pt. reports he is drinking aloe and it has helped clear him out. Adeel reports he had paradoxical broncho-constriction with use of bronchodilators. Veinous insufficiency: He recently had ANDREW ordered by a AKREN Myers. whom I believe is at [facility] 09/16/2023. Results ffice ProceduresABI Limited, Lower ExtremitiesLeft ANDREW: 1.28Right ANDREW: 1.14Pt. does report that Dr. Leblanc had ordered it. Pt denies any crampiness with walking. AAA: Pt. had 08/24/2023: Pt. has been stable at 3.4 cm since 2019. HLD: On Atorvastatin 40 mg HTN: On metoprolol succinate ER 25mg. LE Edema/Venous Insufficiency. On furosemide 20 mg daily. KAREN LOPEZ [address], [place], [address], [facility]. 10/04/2023 16:10:45 02/17/2024 text/html Pt, 82-M, here t o establish care w/new provider. He has multiple chronic conditions including obesity, WILDA, seborrheic dermatitis (sees dermatology yearly for skin care, localized edema/veinous insufficiency, COPD:Pt. denies any new problems. Feeling well. 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 He reports no difficulty with managing her memory care at this time. He did recently in the last year have 2-falls while mowing his lawn. He has since found a man to mow for him and has no concerns. Feels stable otherwise so long as he is careful. COPD: does not tolerate bronchodilators. Pt. reports he is drinking aloe and it has helped clear him out. Adeel reports he had paradoxical broncho-constriction with use of bronchodilators. Veinous insufficiency: He recently had ANDREW ordered by a KAREN Myers. whom I believe is at [facility] 09/16/2023. Results ffice ProceduresABI Limited, Lower ExtremitiesLeft ANDREW: 1.28Right ANDREW: 1.14Pt denies any cramping with walking. AAA: Pt. had 08/24/2023: Pt. has been stable at 3.4 cm since 2019. HLD: On Atorvastatin 40 mg HTN: On metoprolol succinate ER 25mg. LE Edema/Venous Insufficiency. On furosemide 20 mg daily. He denies any difficulty with medication. Taking in the morning. KAREN LOPEZ [address], [place], [address], [facility]. 02/17/2024 11:03:45 06/08/2024 text/html Pt. 83-M, here f or routine f/u. Pt. requesting urology referral for revision surgery for acute on chronic phimosis he manages with clotrimazole as needed. Pt. denies any current irritation, but he states he will need refill on the cream he swabs cicumferentially around the foreskin and glans. Pt. reports he is no longer taking melatonin. Denies insomnia of any concern. [address], [place], [address], [facility], [facility]. 06/08/2024 15:03:05
--- OUTSIDE RECORDS SUMMARY | 2024-06-08 16:42 | XMS_ITS | Clinical Summary ---
Author Organization Formerly [facility] Address [address] [place] [address] Care Team Providers Care Channel Marketing Specialist Name Role Phone Ivan Leblanc MD Primary Care Provider [phone] Allergies Active Allergy Reactions Criticality Noted Date Comments Acetaminophen Low 02/25/2021 Albuterol Low 02/25/2021 Hydrocodone Low 02/25/2021 Ipratropium Low 02/25/2021 Oxycodone High 02/25/2021 Other reaction(s): SEVERE NAUSEA Oxycodone-Acetaminophen Medium CIS - hallucinations Terazosin Low 02/25/2021 Medications Medication Sig Dispensed Refills Start Date End Date Status CIS Free Text Med - Aspirin 08/21/2009 Active tolterodine (DETROL LA) 4 mg 24 hr capsule 08/21/2009 Ac tive celecoxib (CELEBREX) 200 mg capsule 08/21/2009 Active simvastatin (ZOCOR) 40 mg tablet 08/21/2009 Active multivitamin (THERAGRAN) tablet 08/21/2009 Active atorvastatin (LIPITOR) 40 mg Tablet TAKE ONE TABLET BY MOUTH AT BEDTIME 3 01/29/2017 Active finasteride (PROSCAR) 5 mg Tablet TAKE ONE TABLET BY MOUTH AT BEDTIME 1 02/11/2017 Active furosemide (LASIX) 20 mg Tablet TAKE ONE TABLET BY MOUTH EVERY DAY FOR FLUID IN LEGS 1 02/26/2017 Active mupirocin (BACTROBAN) 2 % Ointment APPLY TO AFFECTED SKIN TWO TIMES A DAY COVER WITH BANDAGE 0 01/31/2017 Active VESICARE 5 mg Tablet TAKE ONE TABLET BY MOUTH EVERY DAY 3 10/25/2017 Active aspirin 81 mg Tablet, Delayed Release (E.C.) TAKE ONE TABLET BY MOUTH EVERY DAY 3 02/24/2019 Active metoprolol succinate (TOPROL-XL) 25 mg Tablet Sustained Release 24 hr TAKE ONE TABLET BY MOUTH EVERY DAY 3 01/29/2019 Active augmented betamethasone dipropionate (Diprolene-AF) 0.05 % Ointment APPLY A PEA SIZED AMOUNT TO THE FORESKIN ONCE WEEKLY NEEDED FOR SKIN IRRITATION 03/26/2022 Active selenium sulfide 2.5 % Lotion Use as a shampoo as needed for scalp 120 mL 3 04/06/2022 Active triamcinolone (Kenalog) 0.1 % Cream Apply sparingly 1-2 times daily as needed to facial areas of rash 30 g 3 04/06/2022 Active azithromycin (Zithromax) 250 mg tablet TAKE TWO TABLETS BY MOUTH AT ONCE ON THE FIRST DAY THEN TAKE ONE DAILY THEREAFTER 01/26/2023 Active ketoconazole (Nizoral) 2 % Cream 04/12/2023 Active Active Problems Problem Noted Date Diagnosed Date Seborrheic keratosis 10/10/2014 Seborrheic keratosis, inflamed 10/08/2013 Seborrheic dermatitis 11/24/2012 Immunizations Name Administration Dates Next Due Influenza Vaccine, Whole 04/28/2010,04/08/2008,0 06/09/2007 Social History Tobacco Use Types Packs/Day Years Used Date Smoking Tobacco: Former Smokeless Tobacco: Never Sex and Gender Information Value Date Recorded Sex Assigned at Not on file Gender Identity Not on file Sexual Orientation Not on file Plan of Treatment Upcoming Encounters Date Type Department Care Team (Late st Contact Info) Description 04/12/2025 11:15 AM EST Office Visit Dermatology at [place] [address] [place] [id number] Marques Silva MD [address] [place] [address] Health Maintenance Due Date Last Done Comments Tetanus/Diphtheria/Pertussis Vaccines (1 - Tdap) 1959 Pneumoccocal Vaccine: 65+ (1 of 1 - PCV) 1988 Zoster vaccine (1 of 2) 1988 RSV Vaccine (1 - 1-dose 75+ series) 2013 Covid-19 Vaccine ( season) 2024 Influenza (Flu) vaccine (1 o f 1 - Influenza standard series) 02/05/2024 04/28/2010, 04/08/2008, 06/09/2007 Advance Directives Documents on File Type Date Recorded Patient Otr Tanker Truck Driver Expl anation Advance Directives and Livin g Will 08/05/2010 9:56 AM Care Teams Channel Marketing Specialist Relationship Specialty Start Date End Date Ivan Leblanc MD PCP - General Family Medicine 03/15/17
--- OUTSIDE RECORDS SUMMARY | 2024-06-08 16:42 | XMS_ITS | Encounter Summary ---
Author Organization [facility] Address [facility] [place] [address] Care Team Providers Care Information Systems Security Analyst Name Role Phone Ivan Leblanc MD Primary Care Provider [phone] Reason for Visit * Reason Onset Date Comments Medication Refill 04/02/2021 Encounter Details Date Type Department Care Team (Late st Contact Info) Description 04/02/2021 Refill Dermatology at [address] [phone] Shawnee Guzman LPN Social History Tobacco Use Types Packs/Day Years Used Date Smoking Tobacco: Former Smokeless Tobacco: Never Sex and Gender Information Value Date Recorded Sex Assigned at Not on file Gender Identity Not on file Sexual Orientation Not on file documented as of this encounter Plan of Treatment Upcoming Encounters Date Type Department Care Team (Late st Contact Info) Description 04/12/2025 11:15 AM EST Office Visit Dermatology at [address] [phone] Marques Silva MD [address] [facility], [place] [address] documented as of this encounter Visit Diagnoses Not on filedocumented in this encounter Care Teams Information Systems Security Analyst Relationship Specialty Start Date End Date Ivan Leblanc MD PCP - General Family Medicine 03/15/17 documented as of this encounter
--- OUTSIDE RECORDS SUMMARY | 2024-06-08 16:42 | XMS_ITS | Encounter Summary ---
Author Organization [facility] Address [facility] [place] [address] Care Team Providers Care Documentation Nurse Name Role Phone Ivan Leblanc MD Primary Care Provider [phone] Reason for Visit * Reason Comments Skin Check Face only Encounter Details Date Type Department Care Team (Late st Contact Info) Description 03/27/2020 10:00 AM EDT Office Visit Dermatology at [address] [place] [address] Marques Silva MD [address] [place] [address], [place] [address] Seborrheic keratosis; Seborrheic dermatitis; AK (actinic keratosis) Social History Tobacco Use Types Packs/Day Years Used Date Smoking Tobacco: Former Smokeless Tobacco: Never Sex and Gender Information Value Date Recorded Sex Assigned at Not on file Gender Identity Not on file Sexual Orientation Not on file documented as of this encounter Progress Notes * Marques Silva MD - 03/27/2020 10:00 AM EDT Problem: 1. Follow-up seborrheic dermatitis 2. Yearly skin checkup Adeel follows up today and has been doing well. He continues to use and get good results from theCutar lotion, triamcinolone 0.1% cream to use occasionally and the selenium sulfide 2.5% lotion to use as a shampoo. He needs refills of the latter 2. He has noted some new actinic's. Physical examination reveals a pleasant 79-year-old gentleman who has actinic's present in the upper forehead at the hairline and on the right mid cheek. He has 2 closed comedones on the right upper nasal labial fold. Assessment and plan: Actinic keratosis right medial cheek in the upper forehead 1. LN2 x2 applied to each of the of 3 sites. Seborrheic dermatitis 1. Continue use of Cutar lotion applying on a once to twice daily basis for face for seborrheic dermatitis. 2. We will call refills of his selenium sulfide 2 5% lotion to use as shampoo as needed for scalp. Dispense 120 mL with 3 refills 3. We will call in refills for his triamcinolone 0.1% cream to apply sparingly once to twice daily as needed. Dispense 30 g with 3 refills. 4. Patient uses [facility] in [place] 5. Return to clinic in a year for repeat check. CC: Ivan Leblanc MD documented in this encounter Miscellaneous Notes * Addendum Note - Titi Verduzco LPN - 03/27/2020 10:00 AM EDTAddended by: TITI VERDUZCO on: 03/27/2020 11:11 AM Modules accepted: Orders documented in this encounter Plan of Treatment Upcoming Encounters Date Type Department Care Team (Late st [facility]) Description 04/12/2025 11:15 AM EST Office Visit Dermatology at [place] [address] [facility] [place] [address] Marques Silva MD [address] [facility], [place] [address] documented as of this encounter Visit Diagnoses Diagnosis Seborrheic keratosis Other seborrheic keratosis Seborrheic dermatitis Seborrheic dermatitis, unspecified AK (actinic keratosis) Actinic keratosis documented in this encounter Care Teams Documentation Nurse Relationship Specialty Start Date End Date Ivan Leblanc MD PCP - General Family Medicine 03/15/17 documented as of this encounter
--- OUTSIDE RECORDS SUMMARY | 2024-06-08 16:42 | XMS_ITS | Encounter Summary ---
Author Organization [facility] [place] [address] Care Team Providers Care Nozzle Tender Name Role Phone Ivan Leblanc MD Primary Care Provider [phone] Encounter Details Date Type Department Care Team (Latest Contact Info) Description 04/14/2023 Travel Social History Tobacco Use Types Packs/Day Years [...] 11:15 AM EST Office Visit Dermatology at [place] [address] [place] [address] Marques Silva MD [address] [facility], [place] [address] documented as of this encounter Visit Diagnoses Not on filedocumented in this encounter Care Teams Nozzle Tender Relationship Specialty Start Date End Date Ivan Leblanc MD PCP - General Family Medicine 03/15/17 documented as of this encounter
--- OUTSIDE RECORDS SUMMARY | 2024-06-08 16:42 | XMS_ITS | Continuity of Care Document ---
Author Organization [place] - [facility] Address [address] [place] [address] Assessment No assessment recorded. Plan of Treatment Reminders Order Date Submit Date Provider Last Modified By Organization Details Last Modified Time Details Appointments Follow Up 30 2024 02:00P M Bong Santizo Not available Not available Not available Lab CBC w/ auto diff - 1 Lav 2024 025 [email or web address] [facility] (Registration ), [address] [place] [address] [place], [address], 06/08/2024 15:21:45 Referral plastic and reconstru ctive surgeon referral - Pt, 83-M, history of balanitis and chronic phimosis of foreskin, had been referred by his urologist back in 2022 for surgical evaluatio n for a revision circumcis ion. He manages with clotrimaz ole cream in the interim where he applies daily when it begins to bother him. 2024 025 ALECIA [facility], [address] , [place], [address], 06/08/2024 16:25:28 Procedures None recorded. Surgeries None recorded. Imaging None recorded. Medication Orders clotrimaz ole 1 % topical cream 2024 025 V[facility], [address] [facility], [place], [address], 06/08/2024 15:02:59 Patient TargetsNo targets recorded. Patient Instructions Encounter Date Encounter Id Patient Instructions Last Modified By Organization Details Last Modified Time 06/08/2024 [id number] Please bring us a copy of your advanced directive if you can find it. [email or web address] Not available 06/08/2024 14:08:58 Reason for Referral [...] Markus Santizo, Family Medicine, Encounter Date: 06/08/2024 Problems Name Problem SNOMED Code Status Onset Date Resolution Date Notes Provider Name and Address Organization Details Recorded Time Zaid saleh 00024977 Active [address], [place], [address] , [facility] 13:59:16 Acquired phimosis 141670249 Active [address], [place], [address] , [facility], [facility] 5 14:01:50 Anemia 013451397 Active [address], [place], [address] , [facility], [facility] 5 14:30:01 Obesity 749351213 Active 2014 MICHELLE gloria, [facility], [facility]. 4 15:20:27 Hyperlip idemia 61013934 Active 2014 MICHELLE gloria, [facility]. 4 15:20:12 Atherosc lerosis of coronary artery without angina pectoris 63954170011 4103 Active 2014 MICHELLE gloria, [facility], [facility]. 4 15:18:38 Genitour inary symptoms 916762257 Active 2014 MICHELLE gloria, [facility]. 4 15:19:52 Osteoart hritis 429149838 Active 2014 MICHELLE gloria, [facility]. 4 15:20:40 Obstruct michelle sleep apnea syndrome 34823607 Active 2014 MICHELLECollins SCHULTZUE juani, [facility] 4 15:20:36 Chronic obstruct michelle pulmonar y disease 22840659 Active 2014 MICHELLECollins gloria, [facility]. 4 15:19:01 Adult health examinat ion [facility] 15:18:27 Abdomina l aortic aneurysm 298847177 [facility] 2015 [facility] 4 15:18:15 Seborrhe ic dermatit is 17910720 Active 2015 MICHELLECollins gloria, [facility], [facility]. 4 15:21:01 Constipa tion 38870058 [facility] 4 15:19:06 Pharynge al dysphagi a 43179847207 105 Active 2016 MICHELLECollins gloria, [facility]. 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. 4 15:21:14 Localize d edema 953078690 Active 2016 MICHELLE gloria, [facility]. 4 15:20:23 Disorder of hematopo ietic structur e 515836991 Active 2017 MICHELLE ALE juani, [facility]. 4 15:19:33 Cataract 204959788 Active 2018 MICHELLE ALE juani, [facility]. 4 15:18:49 Actinic keratosi s 979104925 Active 2018 MICHELLE gloria, [facility]. 4 15:18:22 Impingem ent syndrome of shoulder region 362926987 Completed 201810/04/2023 KAREN LOPEZ [address], [place], [address] , [facility] 4 07:27:09 Atopic dermatit is 39413631 Active 2019 MICHELLE gloria, [facility] 4 15:18:43 Dizzines s and giddines s 401015986 Completed 202007/14/2020 06/23/19 21 - Comments only - Alba Choiramón s - Dizzy spells due to cerumin obstruct ion of ear canal. Episodes resolved with Debrox ear drops. Continue to use Debrox drops and return to clinic if dizzy spells reoccur. Problem Code: R42; Problem Code Type: ICD-10; Not Available [facility] 3 04:35:10 Rupture of rotator cuff of left shoulder 26442675260 977934 Active 2020 MICHELLE gloria, [facility]. 4 15:20:55 Phimosis 132341879 Active 2020 MICHELLECollins gloria, [facility]. 4 15:20:50 Cervical radiculo kristina 31151925 Active 2020 MICHELLE ALE gloria, [facility]. 4 15:18:56 Contact dermatit is 53658294 Active 2021 MICHELLE ALE gloria, [facility]. 4 15:19:11 Dystroph ia unguium 11364484 Active 2021 MICHELLE ALE gloria, [facility]. 4 15:19:38 Hammer toe 872501236 Active 2021 MICHELLE gloria, [facility] 4 15:19:57 History of infectio us disease 043949130 Active 2021 MICHELLE gloria, [facility] 4 15:20:05 Spasm 26575897 Active 2022 MICHELLE gloria, [facility] 4 15:21:06 Acute exacerba tion of chronic obstruct michelle pulmonar y disease 053412267 Completed 202202/09/2023 Problem Code: J44.1; Problem Code Type: ICD-10; RODERICK HSIEH MD [address], [place], [address] , [facility] 4 14:15:44 Localize d eruption of skin 846901870 Completed 201903/02/2023 06/22/19 20 - Comments only - Andressa Steph Dominguez NEON TUBE BENDER - Presenta tion consiste nt with follicul [...] R21; Problem Code Type: ICD-10; Not Available [facility] 3 04:35:11 Hemoptys is 60715221 Completed 201811/28/2019 Problem Code: R04.2; Problem Code Type: ICD-10; Not Available [facility] 3 04:35:11 Cough 84466635 Completed 202209/30/2022 Problem Code: R05.8; Problem Code Type: ICD-10; Not Available [facility] 3 04:35:11 Abrasion , abdomina l wall 259468973 Completed 202103/02/2023 Problem Code: S30.811A ; Problem Code Type: ICD-10; Not Available [facility] 3 04:35:11 Chest pain 07228726 Completed 201511/13/2015 Problem Code: R07.89; Problem Code Type: ICD-10; Not Available [facility] 3 04:35:12 Recurren t aphthous stomatit is 949278799 Completed 201811/28/2019 Problem Code: K12.0; Problem Code Type: ICD-10; Not Available [facility] 3 04:35:12 Impacted cerumen in right ear 40105437756 66549 Completed 201710/05/2017 Problem Code: H61.21; Problem Code Type: ICD-10; Not Available [facility] 3 04:35:12 Acute pharyngi tis 789530289 Completed 202109/07/2022 Problem Code: J02.9; Problem Code Type: ICD-10; Not Available [facility] 3 04:35:12 Benign prostati c hyperpla saqib 154179543 Completed 201305/04/2015 Not Available [facility] 3 04:35:12 Pleuriti c pain 5644926 Completed 201510/05/2017 Problem Code: R07.81; Problem Code Type: ICD-10; Not Available [facility] 3 04:35:13 Paresthe saqib 31221434 Completed 202004/06/2021 Problem Code: R20.2; Problem Code Type: ICD-10; Not Available [facility] 3 04:35:13 Chronic obstruct michelle pulmonar y disease 65400726 Completed 200405/04/2015 MICHELLE gloria [facility]. 4 15:19:01 Obesity 505158320 Completed 200405/04/2015 MICHELLE gloria [facility]. 4 15:20:27 Hyperlip idemia 02811711 Completed 201305/04/2015 BERE Mack - [facility]. 4 15:20:12 Neck pain 86037908 Completed 201710/05/2017 Problem Code: M54.2; Problem Code Type: ICD-10; Not Available [facility] 3 04:35:13 Pain in right hip joint 62773794644 9102 Completed 201804/06/2021 Problem Code: M25.551; Problem Code Type: ICD-10; Not Available [facility] 3 04:35:14 Disorder of skin and/or subcutan eous tissue 56539704 Completed 201605/09/2017 Problem Code: L98.9; Problem Code Type: ICD-10; Not Available [facility] 3 04:35:14 Acute sinusiti s 52169407 Completed 202212/08/2022 Problem Code: J01.90; Problem Code Type: ICD-10; Not Available [facility] 3 04:35:14 Knee joint effusion 327783575 Completed 201710/05/2017 Problem Code: M25.469; Problem Code Type: ICD-10; Not Available [facility] 3 04:35:14 COVID-19 882563159 Completed 202104/13/2022 Problem Code: U07.1; Problem Code Type: ICD-10; Not Available [facility] 3 04:35:14 Pain in thoracic spine 219567171 Completed 201704/04/2018 02/17/20 21 - Comments only - Roderick Hsieh MD - Exam strongly points to muscular [...] M54.9; Problem Code Type: ICD-10; Not Available [facility] 3 04:35:15 Impingem ent syndrome of left shoulder region 68292799069 9104 Completed 201803/02/2023 08/26/19 21 - Comments only - Roderick Hsieh MD - Appears unrealte d to new tingling , but has cynthia limitati on to ROM above head. Would like to do some more PT, referral placed. Problem Code: M75.42; Problem Code Type: ICD-10; Not Available [facility] 3 04:35:15 Obstruct michelle sleep apnea syndrome 98377076 Completed 201305/04/2015 MICHELLE gloria [facility] 4 15:20:36 Osteoart hritis 826524821 Completed 200505/04/2015 Problem Code: 715.90; Problem Code Type: ICD-9; MICHELLE gloria [facility] 4 15:20:40 Coronary arterios clerosis 10457254 Completed 200405/04/2015 Not Available [facility] 3 04:35:15 Benign prostati c hyperpla saqib 880475757 Completed 201403/02/2023 05/10/20 16 - Comments only - Roderick Hsieh MD - contine finaster chrissie [facility] Problem Code: N40.0; Problem Code Type: ICD-10; Not Available [facility] 3 04:35:16 Arthralg ia of the ankle and/or foot 481142199 Active 2022 MICHELLE gloria [facility] 4 15:18:33 Essentia l hyperten viviane 85874227 Active 2023 KAREN LOPEZ [address], [place], [address] , [facility] 4 07:27:21 Edema of lower extremit y 505518583 Active 2023 KAREN LOPEZ [address], [place], [address] , [facility] 4 08:57:59 Problem Notes None recorded. Medical Equipment None Reported. Allergies Allergen ID Allergen Name Allergen Category Reaction Reaction Severity Criticality Documentation Date Start Date Code Code System Note Provider Name and Address Organization Details Recorded Time 20057 Combivent medicatio n dyspnea mild Not available 04/15/20232009 61909 9 RxNorm DYSPN EA Not Available [facility] 3 16:22:04 60955 acetamino phen / hydrocodo ne medicatio n hallucina tions mild Not available 04/15/20232011 15246 2 RxNorm hallu cinat ion Aller gyRea ction : 'rosales ucina tion' ; Aller gyCod e: '0012 54629 10'; Aller gyNam e: 'JANAE DIN'; Aller gyCon ceptT ype: 'NDC' ; Not Available [facility] 3 16:22:04 Medications Name Sig Start Date [...] Not Available Not Available Not Avai lable silvino ne ER 4 mg capsule,e xtended release 24 hr TAKE ONE CAPSULE BY MOUTH EVERY DAY active Not Available Not Available No t Available urea 40 % topical cream APPLY TO toenails daily active 07/12/23 [facility] Not Available Not Available Not Available Medrol (Quintin) 4 mg tablets in a dose pack Take 1 tablet by mouth as directed jeanette g package instruct ions 03/08 completed Not [...] active Not Available Not Available Not Avai labtyler triamcino lone acetonide 0.1 % dental paste [...] Not Available Vitals Date Recorded Body height Body mass index (BMI) Body weight Body temperature Oxygen saturation Oxygen saturation in Arterial blood by Pulse oximetry Heart rate Systolic blood pressure Diastolic blood pressure Provider Name and Address Organization Details Last Updated DateTime 5 165.735 cm 33.3 kg/m2 87117.9 4 g 98.4 [degF] 96 % 96 % 60 /min 118 mm[Hg] 68 mm[Hg] AVI TOMAS [place] [facility]. 5 13:34:52 Social History None recorded. Functional Status None recorded. Mental Status None recorded. Family History Relationship Description Onset Age of this Age Resolved Age Notes LastModified by Organization Details LastModified Time Father Family history of malignant neoplasm [email or web address] Not available 2022 04:00:38 Mother Family history of malignant neoplasm [email or web address] Not available 2022 04:00:39 Mother Family history of diabetes mellitus type 1 [email or web address] Not available 2022 04:00:39 Notes:*Problem: Mother: dece [...] Recorded Time Tdap 1 completed Not Available [facility] 04/15/2023 04:30:54 Tdap 2 completed Not Available [facility] 04/15/2023 04:30:55 zoster live 6 completed Not Available [facility] 04/15/2023 04:30:55 Pneumococcal conjugate PCV 13 7 completed Not Available [facility] 04/15/2023 04:30:55 Td(adult) unspecified formulation 9 completed Not Available [facility] 04/15/2023 04:30:55 Td(adult) unspecified formulation 8 completed Not Available [facility] 04/15/2023 04:30:56 Influenza, split virus, trivalent, preservative 5 completed Not Available [facility] 04/15/2023 04:30:56 Influenza, split virus, trivalent, preservative 6 completed Not Available [facility] 04/15/2023 04:30:56 Influenza, split virus, quadrivalent, preservative 7 completed Not Available [facility] 04/15/2023 04:30:56 Influenza, high-dose, quadrivalent, PF 0 completed Not Available [facility] 04/15/2023 04:30:56 Influenza, high-dose, quadrivalent, PF 1 completed Not Available [facility] 04/15/2023 04:30:56 COVID-19, mRNA, LNP-S, PF, 100 mcg/0.5mL dose or 50 mcg/0.25mL dose 1 completed Not Available [facility] 04/15/2023 04:30:57 SARS-COV-2 (COVID-19) vaccine, UNSPECIFIED 1 completed Not Available [facility] 04/15/2023 04:30:57 SARS-COV-2 (COVID-19) vaccine, UNSPECIFIED 1 completed Not Available [facility] 04/15/2023 04:30:57 SARS-COV-2 (COVID-19) vaccine, UNSPECIFIED 2 completed Not Available [facility] 04/15/2023 04:30:57 pneumococcal polysaccharide PPV23 5 completed Not Available [facility] 04/15/2023 04:30:57 influenza, unspecified formulation 2 completed Not Available [facility] 04/15/2023 04:30:57 influenza, unspecified formulation 4 completed Not Available [facility] 04/15/2023 04:30:57 influenza, unspecified formulation 3 completed Not Available [facility] 04/15/2023 04:30:57 influenza, unspecified formulation 8 completed Not Available [facility] 04/15/2023 04:30:58 COVID-19, mRNA, LNP-S, PF, adela-sucrose, 30 mcg/0.3 mL 4 completed KAREN LOPEZ [address], [place], [address], [facility]. 02/17/2024 10:27:11 Influenza, high-dose, quadrivalent, PF 3 completed Not Available [facility] 06/17/2023 05:33:13 COVID-19, mRNA, LNP-S, PF, adela-sucrose, 30 mcg/0.3 mL 3 completed Not Available [facility] 06/17/2023 05:33:13 Influenza, high-dose, trivalent, PF completed KAREN LOPEZ [address], [place], [address], [facility] 06/08/2024 14:34:29 Past Encounters Encounter ID Performer Location Encounter Start Date Encounter Closed Date Diagnosis/Indication Diagnosis SNOMED-CT Code Diagnosis ICD10 Code [id number] KAREN LOPEZ [facility] [address] [place] [address] 06/08/2024 12:52:44 06/08/2024 15:37:07 Active or passive immunization 708024939 Z23 Balanitis 08107131 N48.1 Acquired phimosis 144833 009 N47.1 Anemia 651804324 D64.9 Health Concerns Section Related Observation LastModified by Organization Detai ls LastModified Time None Recorded Concern Status LastModified by Organization Details LastModified Time None Recorded Payers Encounter Date Sequence Insurance Name Policy Number Policy Barcenas Covered Member ID Barcenas Member ID Guarantor Name 06/08/2024 1 [place] [employer] Adeel Lanier [id number] Adeel Lanier Notes Date Note Type Note Provider Name and Address Organization Details Recorded Time 06/08/2024 text/html Pt. 83-M, here f or [...] Denies insomnia of any concern. KAREN LOPEZ [address], [place], [address], [facility] 06/08/2024 15:03:05
--- OUTSIDE RECORDS SUMMARY | 2024-06-08 16:42 | XMS_ITS | Encounter Summary ---
Author Organization [facility] Address [facility] [place] [address] Care Team Providers Care Web Content Executive Name Role Phone Ivan Leblanc MD Primary Care Provider [phone] Reason for Visit * Reason Comments Follow-up Skin Check Encounter Details Date Type Department Care Team (Late st Contact Info) Description 03/16/2018 10:45 AM EDT Office Visit Dermatology at [address] [place] [address] Marques Silva MD [address] [place] [address], [place] [address] Seborrheic keratosis; Seborrheic dermatitis; AK (actinic keratosis) Social History Tobacco Use Types Packs/Day Years Used Date Smoking Tobacco: Former Smokeless Tobacco: Never Sex and Gender Information Value Date Recorded Sex Assigned at Not on file Gender Identity Not on file Sexual Orientation Not on file documented as of this encounter Progress Notes * Marques Silva MD - 03/16/2018 10:45 AM EDT Problem: 1. Follow-up seborrheic dermatitis 2. Yearly skin checkup Adeel follows up and is doing well. He continues to use and get good results from the Cutar lotion. He has triamcinolone to use occasionally. He also has selenium sulfide 2.5% lotion to use as a shampoo. Physical examination reveals a pleasant 77-year-old gentleman who seborrheic dermatitis is well controlled. He has several small actinic's one in the right cheek and one on his left yazidi. Otherwisecareful examination of the head and the neck the chest and the back the hands informs thighs and calves is benign. Assessment plan: Actinic keratoses facial 1. LN 2 x 2 applied to each of 2 sites Seborrheic dermatitis 1. Continue use of Cutar lotion for seborrheic dermatitis and triamcinolone cream. He also has selenium sulfide 2.5% lotion to use. He does not require refills of this at this time CC: Ivan Paul MD documented in this encounter Plan of Treatment Upcoming Encounters Date Type Department Care Team (Late st Contact Info) Description 04/12/2025 11:15 AM EST Office Visit Dermatology at [place] [address] [place] [address] Marques Silva MD [address] [facility], [place] [address] documented as of this encounter Visit Diagnoses Diagnosis Seborrheic keratosis Other seborrheic keratosis Seborrheic dermatitis Seborrheic dermatitis, unspecified AK (actinic keratosis) Actinic keratosis documented in this encounter Care Teams Web Content Executive Relationship Specialty Start Date End Date Ivan Leblanc MD PCP - General Family Medicine 03/15/17 documented as of this encounter
--- OUTSIDE RECORDS SUMMARY | 2024-06-08 16:42 | XMS_ITS | Encounter Summary ---
[place] [address] Care Team Providers Care Heater Tender Name Role Phone Ivan Leblanc MD Primary Care Provider [phone] Reason for Referral * Consultation (Routine) - Closed Specialty Diagnoses / Procedures Referred By Enid sapp Referred To Contact Urology Diagnoses Other disorders of prepuce Jillian Farfan APRN [address] [place] [address] [facility] [place] [address] Referral ID Status Reason Start Date Expiration Date V isits Requested Visits Authorized [id number] Closed Consult, Test & Treat PCP Updated and/or Approved 11/23/2022 11/23/2023 6 6 Encounter Details Date Type Department Care Team (Late st Contact Info) Description 11/23/2022 Transcribe Orders eDH Incoming Referrals [phone] Ivan Leblanc MD [address] [place] [address] [place] [address] Other disorders of prepuce Social History Tobacco Use Types Packs/Day Years [...] 11:15 AM EST Office Visit Dermatology at [place] [address] [place] [id number] Marques Silva MD [address] [facility] [address], [place] [address] Scheduled Referrals Name Type Priority Associated Diagnoses Orde r Schedule Referral to Urology Outpatient Referral Routine Other disorders of prepuce Ordered: 11/23/2022 documented as of this encounter Visit Diagnoses Diagnosis Other disorders of prepuce documented in this encounter Care Teams Heater Tender Relationship Specialty Start Date End Date Ivan Leblanc MD PCP - General Family Medicine 03/15/17 documented as of this encounter
--- OUTSIDE RECORDS SUMMARY | 2024-06-08 16:42 | XMS_ITS | Encounter Summary ---
Author Organization [facility] Address [facility] [place] [address] Care Team Providers Care Ultimate Hoops Scoreboard Operator Name Role Phone Ivan Leblanc MD Primary Care Provider [phone] Reason for Visit * Reason Comments Skin Check Face Encounter Details Date Type Department Care Team (Late st Contact Info) Description 04/02/2021 11:00 AM EDT Office Visit Dermatology at [address] [place] [address] Marques Silva MD [address] [facility], [place] [address] Seborrheic keratosis; Seborrheic dermatitis; AK (actinic keratosis) Social History Tobacco Use Types Packs/Day Years Used Date Smoking Tobacco: Former Smokeless Tobacco: Never Sex and Gender Information Value Date Recorded Sex Assigned at Not on file Gender Identity Not on file Sexual Orientation Not on file documented as of this encounter Progress Notes * Marques Silva MD - 04/02/2021 11:00 AM EDT Problem: 1. ??Follow-up seborrheic dermatitis 2. ??Yearly skin checkup Adeel follows up today for a yearly check and is here today with his Barry. He has been doing well please noted and actinic on his right cheek. He continues to use his creams for seborrheic dermatitis with excellent control. Physical examination reveals a pleasant 80-year-old gentleman who has and actinic present on his right mid cheek. Otherwise examination of the scalp the face the ears the hands and forearms is benign. Assessment plan: Actinic keratosis right mid cheek 1. LN 2 x 2 applied to 1 single site Seborrheic dermatitis 1. Continue Cutar lotion applying [...] 30 g with 3 refills. 4. Patient needs [facility] pharmacy in [place] 5. Return to clinic in a year for repeat check. CC: Ivan Leblanc MD documented in this encounter Plan of Treatment Upcoming Encounters Date Type Department Care Team (Late st Contact Info) Description 04/12/2025 11:15 AM EST Office Visit Dermatology at [place] [address] [facility] [place] [address] Marques Silva MD [address] [facility], [place] [address] documented as of this encounter Visit Diagnoses Diagnosis Seborrheic keratosis Other seborrheic keratosis Seborrheic dermatitis Seborrheic dermatitis, unspecified AK (actinic keratosis) Actinic keratosis documented in this encounter Care Teams Ultimate Hoops Scoreboard Operator Relationship Specialty Start Date End Date Ivan Leblanc MD PCP - General Family Medicine 03/15/17 documented as of this encounter
--- OUTSIDE RECORDS SUMMARY | 2024-06-08 16:42 | XMS_ITS | Encounter Summary ---
Author Organization [facility] Address [facility] [place] [address] Care Team Providers Care Roaster Helper Name Role Phone Ivan Leblanc MD Primary Care Provider [phone] Reason for Visit * Reason Comments Skin Check Encounter Details Date Type Department Care Team (Late st Contact Info) Description 03/15/2017 11:15 AM EDT Office Visit Dermatology at [address] [place] [address] Marques Silva MD [address] [facility], [place] [address] Seborrheic keratosis; Seborrheic dermatitis Social History Tobacco Use Types Packs/Day Years Used Date Smoking Tobacco: Former Smokeless Tobacco: Never Sex and Gender Information Value Date Recorded Sex Assigned at Not on file Gender Identity Not on file Sexual Orientation Not on file documented as of this encounter Progress Notes * Marques Silva MD - 03/15/2017 11:15 AM EDT PROBLEM: 1. Followup seborrheic dermatitis. 2. Yearly skin checkup. Adeel follows up and is here with his significant other, Barry. He continues to love the Cutar lotion and even uses it shaving. He has triamcinolone to use occasionally and will occasionally use Lamisil 2.5% lotion as well. The seborrheic dermatitis is controlled 100%. Physical examination reveals a pleasant now 76-year-old gentleman who has a benign examination of the face, the chest, the back, hands, arms, forearms, thighs and the calves. Seborrheic dermatitis is very well controlled on his face. He has several seborrheic keratoses present in the yazdanism area and on early sites on the dorsal arms bilaterally. He has 1 on his right elbow. A/P: Benign skin examination. a. Patient reassured about today's benign skin examination. b. Recommend I see him again in another year for repeat check, sooner for new lesions of concern. 2. Seborrheic dermatitis. a. Continue use of Cutar lotion for facial seborrheic dermatitis. Return to clinic in another year. Cc: Ivan Leblanc MD documented in this encounter Plan of Treatment Upcoming Encounters Date Type Department Care Team (Late st Contact Info) Description 04/12/2025 11:15 AM EST Office Visit Dermatology at [address] [address] Marques Silva MD [address] [place] [address], [place] [address] documented as of this encounter Visit Diagnoses Diagnosis Seborrheic keratosis Other seborrheic keratosis Seborrheic dermatitis Seborrheic dermatitis, unspecified documented in this encounter Care Teams Roaster Helper Relationship Specialty Start Date End Date Ivan Leblanc MD PCP - General Family Medicine 03/15/17 documented as of this encounter
--- OUTSIDE RECORDS SUMMARY | 2024-06-08 16:42 | XMS_ITS | Encounter Summary ---
Author Organization [facility] Address [facility] [place] [address] Care Team Providers Care Supervisor Tree Fruit [employer] Nut Farming Name Role Phone Ivan Leblanc MD Primary Care Provider [phone] Reason for Visit * Reason Comments Follow-up Skin Check Encounter Details Date Type Department Care Team (Late st Contact Info) Description 03/19/2019 11:00 AM EDT Office Visit Dermatology at [address] [place] [address] Marques Silva MD [address] [place] [address], [place] [address] Seborrheic keratosis; Seborrheic dermatitis; AK (actinic keratosis) Social History Tobacco Use Types Packs/Day Years Used Date Smoking Tobacco: Former Smokeless Tobacco: Never Sex and Gender Information Value Date Recorded Sex Assigned at Not on file Gender Identity Not on file Sexual Orientation Not on file documented as of this encounter Progress Notes * Marques Silva MD - 03/19/2019 11:00 AM EDT Mio: 1. Follow-up seborrheic dermatitis 2. Yearly skin check Adeel follows-up is doing well. He continues to use and get good results from the Cutar lotion. He has triamcinolone to use occasionally. He also has selenium sulfide 2.5% lotion to use as a shampoo Physical examination reveals a pleasant now 78-year-old gentleman who seborrheic dermatitis is wellcontrolled. He has 2 closed comedones on the right upper nasolabial fold. He has a single actinic on the right medial cheek. Otherwise careful examination of the head and the neck is benign as is theexamination of his hands his forearms. He does not desire examination of the chest or back today Assessment plan: Actinic keratosis right medial cheek 1. LN 2 x 2 applied to single site Seborrheic dermatitis 1. Continue use of Cutar lotion for seborrheic dermatitis and triamcinolone cream. He also has selenium sulfide 2.5% lotion to use. He does not require refills at this time he states 2. Return to clinic in 1 year for repeat check CC: Ivan Leblanc MD documented in this encounter Plan of Treatment Upcoming Encounters Date Type Department Care Team (Late st Contact Info) Description 04/12/2025 11:15 AM EST Office Visit Dermatology at [place] [address] [place] [address] Marques Silva MD [address] [facility], [place] [address] documented as of this encounter Visit Diagnoses Diagnosis Seborrheic keratosis Other seborrheic keratosis Seborrheic dermatitis Seborrheic dermatitis, unspecified AK (actinic keratosis) Actinic keratosis documented in this encounter Care Teams Supervisor [employer] Relationship Specialty Start Date End Date Ivan Leblanc MD PCP - General Family Medicine 03/15/17 documented as of this encounter
--- OUTSIDE RECORDS SUMMARY | 2024-06-08 16:42 | XMS_ITS | Encounter Summary ---
Author Organization [facility] Address [facility] [place] [address] Care Team Providers Care Healthcare Consulting Manager Name Role Phone Ivan Leblanc MD Primary Care Provider [phone] Reason for Visit * Reason Comments Annual Exam Encounter Details Date Type Department Care Team (Late st Contact Info) Description 04/14/2023 11:00 AM EST Office Visit Dermatology at [address] [place] [address] Marques Silva MD [address] [facility], [place] [address] Seborrheic keratosis; Seborrheic dermatitis Social History Tobacco Use Types Packs/Day Years Used Date Smoking Tobacco: Former Smokeless Tobacco: Never Sex and Gender Information Value Date Recorded Sex Assigned at Not on file Gender Identity Not on file Sexual Orientation Not on file documented as of this encounter Progress Notes * Marques Silva MD - 04/14/2023 11:00 AM EST Problem: 1. Follow-up seborrheic dermatitis 2. Yearly skin checkup Adeel follows up for his yearly skin checkup. He notes been doing well. Physical examination reveals a pleasant 82-year-old gentleman is here today with his , Barry. Patient has benign examination of the face the hands arms and forearms. He has no absolutely no seborrheic dermatitis. He does not desire examination of the chest or back. Assessment plan: Benign skin examination 1. Patient reassured about his benign skin examination Seborrheic dermatitis 1. Continue to Cutar lotion applying on a once or twice daily basis as needed for his facial seborrheic dermatitis. He orders this online for coming directly. He applies it when he shaves his face and leaves it on afterwards. 2. Continue selenium sulfide 2.5% lotion as a shampoo as needed for scalp. He does not need refillstoday. 3. Continue triamcinolone 0.1 % cream applying sparingly as needed for flares of facial rash. He does not need refills today. 4. Return to clinic in a year for repeat check. CC: Ivan Leblanc MD documented in this encounter Plan of Treatment Upcoming Encounters Date Type Department Care Team (Late st Contact Info) Description 04/12/2025 11:15 AM EST Office Visit Dermatology at [place] [address] [facility] [place] [address] Marques Silva MD [address] [facility] [address], [place] [address] documented as of this encounter Visit Diagnoses Diagnosis Seborrheic keratosis Other seborrheic keratosis Seborrheic dermatitis Seborrheic dermatitis, unspecified documented in this encounter Care Teams Healthcare Consulting Manager Relationship Specialty Start Date End Date Ivan Leblanc MD PCP - General Family Medicine 03/15/17 documented as of this encounter
--- OUTSIDE RECORDS SUMMARY | 2024-06-08 16:42 | XMS_ITS | Encounter Summary ---
Author Organization [facility] [place] [address] Care Team Providers Care Crop Farm Workers Name Role Phone Ivan Leblanc MD Primary Care Provider [phone] Encounter Details Date Type Department Care Team (Late st Contact Info) Description 04/06/2022 Refill Dermatology at [address] [address] Radha Salcedo, ROSE GRADING SUPERVISOR Social History Tobacco Use Types Packs/Day Years [...] 11:15 AM EST Office Visit Dermatology at [address] [address] Marques Silva MD [address] [place] [address], [place] [address] documented as of this encounter Visit Diagnoses Not on filedocumented in this encounter Care Teams Crop Farm Workers Relationship Specialty Start Date End Date Ivan Leblanc MD PCP - General Family Medicine 03/15/17 documented as of this encounter
--- OUTSIDE RECORDS SUMMARY | 2024-06-08 16:43 | XMS_ITS | Clinical Summary ---
Author Organization [facility] Address [address] [place] [address] Care Team Providers Care Truck Assembler Name Role Phone Ivan Kong MD Primary Care Provider [phone] Social History Tobacco Use Types Packs/Day Years Used Date Smoking Tobacco: Never Assessed Sex and Gender Information Value Date Recorded Sex Assigned at Not on file Legal Sex Male 17:48 EST Gender Identity Not on file Sexual Orientation Not on file Plan of Treatment Health Maintenance Due Date Last Done Comments Fall Risk Screening 10/27/2003 RSV Immunization ( o r 60+ Years) (1 - 1-dose 75+ series) 2013 COVID-19 Vaccine ( season) 2024 Care Teams Truck Assembler Relationship Specialty Start Date End Date Ivan Kong MD PCP - General 04/11/15
--- OUTSIDE RECORDS SUMMARY | 2024-06-08 16:43 | XMS_ITS | Encounter Summary ---
Author Organization [facility] [place] [address] Care Team Providers Care Flight Attendant/Inflight Supervisor Name Role Phone Ivan Kong MD Primary Care Provider [phone] Reason for Visit * Reason Comments Follow-up Encounter Details Date Type Department Care Team (Late st Contact Info) Description 01/19/2013 1:30 PM EDT Office Visit Dermatology [address] [facility] [address] [place] [address] Marques Silva MD [address], [place] [address] Seborrheic dermatitis (Primary Dx) Social History Tobacco Use Types Packs/Day Years Used Date Smoking Tobacco: Unknown Sex and Gender Information Value Date Recorded Sex Assigned at Not on file Gender Identity Not on file Sexual Orientation Not on file documented as of this encounter Progress Notes * Marques Silva MD - 01/19/2013 1:54 PM EDT Problem List: Followup of seborrheic dermatitis. Adeel follows up two months after last being seen. He is shocked at how well the treatment has worked. Physical examination reveals a pleasant 73-year-old gentleman whose previously flaring seborrheic dermatitis of the glabella, nose, nasolabial folds, cheeks, and chin, ending abruptly at the submandibular chin, has entirely cleared. Also, the patchy involvement behind both postauricular ears and the perineal area is also cleared. Assessment and Plan: 1. Seborrheic dermatitis. a. Continue previous treatment alternating between selenium sulfide 2.5% lotion and tar shampoo. b. Continue using Cutar lotion sparingly, using triamcinolone cream on a q. three to four day basis. c. Return to clinic in another six months for repeat check. COPY: Ivan Kong M.D. documented in this encounter Plan of Treatment Upcoming Encounters Date Type Department Care Team (Late st Contact Info) Description 04/12/2025 11:15 AM EST Office Visit Dermatology at [address] [address] Marques Silva MD [address] [facility], [place] [address] documented as of this encounter Visit Diagnoses Diagnosis Seborrheic dermatitis- Primary Seborrheic dermatitis, unspecified documented in this encounter Care Teams Flight Attendant/Inflight Supervisor Relationship Specialty Start Date End Date Ivan Kong MD PCP - General 04/28/10 03/14/17 documented as of this encounter
--- OUTSIDE RECORDS SUMMARY | 2024-06-08 16:43 | XMS_ITS | Referral Summary ---
Author Organization [facility] Address [address] [place] [address] Care Team Providers Care Tile Sprayer Name Role Phone Ivan Kong MD Primary Care Provider [phone] Social History Tobacco Use Types Packs/Day Years Used Date Smoking Tobacco: Never Assessed Sex and Gender Information Value Date Recorded Sex Assigned at Not on file Legal Sex Male 17:48 EST Gender Identity Not on file Sexual Orientation Not on file Plan of Treatment Not on file Care Teams Tile Sprayer Relationship Specialty Start Date End Date Ivan Kong MD PCP - General 04/11/15
--- OUTSIDE RECORDS SUMMARY | 2024-06-08 16:43 | XMS_ITS | Encounter Summary ---
Author Organization [facility] Address [place] [address] Care Team Providers Care Tooth Cutter Name Role Phone Ivan Kong MD Primary Care Provider [phone] Reason for Visit * Reason Comments Follow-up Encounter Details Date Type Department Care Team (Late st Contact Info) Description 03/15/2016 2:15 PM EDT Office Visit Dermatology at [address] [place] [address] Marques Silva MD [address] [facility], [place] [address] Seborrheic keratosis; Seborrheic dermatitis Social History Tobacco Use Types Packs/Day Years Used Date Smoking Tobacco: Former Sex and Gender Information Value Date Recorded Sex Assigned at Not on file Gender Identity Not on file Sexual Orientation Not on file documented as of this encounter Progress Notes * Marques Silva MD - 03/15/2016 2:15 PM EDT PROBLEM: 1. Followup seborrheic dermatitis. 2. Yearly skin checkup. Adeel follows up and has been doing well. He loved the Cutar lotion and he even shaves with it. He then used the triamcinolone cream. He will occasionally use Lamisil 2.5% lotion as well. His tags remain well-healed. Several of his seborrheic keratoses have recurred. Physical examination reveals a pleasant, now 75-year-old gentleman who has a benign examination of the face, the chest, the back, hands and forearms, thighs and calves. His seborrheic dermatitis is very well controlled on the face. He has no actinics today. A/P: 1. Benign skin examination. a. Patient with a benign skin examination. b. Recommend I see him in another year for repeat check. 2. Seborrheic dermatitis. a. Continue use of the Cutar lotion, he is given 2 samples today. Obtain a larger size bottle from the local pharmacy. b. Discussed the option of [employer] as a source, but he does not use the internet. c. Return to clinic here in another year for repeat check. CC: Ivan Kong MD documented in this encounter Plan of Treatment Upcoming Encounters Date Type Department Care Team (Late st Contact Info) Description 04/12/2025 11:15 AM EST Office Visit Dermatology at [address] [address] Marques Silva MD [address] [facility], [place] [address] documented as of this encounter Visit Diagnoses Diagnosis Seborrheic keratosis Other seborrheic keratosis Seborrheic dermatitis Seborrheic dermatitis, unspecified documented in this encounter Care Teams Tooth Cutter Relationship Specialty Start Date End Date Ivan Kong MD PCP - General 04/28/10 03/14/17 documented as of this encounter
--- OUTSIDE RECORDS SUMMARY | 2024-06-08 16:43 | XMS_ITS | Encounter Summary ---
Author Organization [facility] Address [facility] [place] [address] Care Team Providers Care Nuclear Radiation Engineer Name Role Phone Ivan Kong MD Primary Care Provider [phone] Reason for Visit * Reason Comments Skin Check Encounter Details Date Type Department Care Team (Late st Contact Info) Description 10/08/2013 1:00 PM EDT Office Visit Dermatology at [address] [place] [address] Marques Silva MD [address], [place] A DERMATOLOGY [place], [place] [id number] Seborrheic dermatitis (Primary Dx); Seborrheic keratosis, inflamed Social History Tobacco Use Types Packs/Day Years Used Date Smoking Tobacco: Unknown Sex and Gender Information Value Date Recorded Sex Assigned at Not on file Gender Identity Not on file Sexual Orientation Not on file documented as of this encounter Patient Instructions * Patient Instructions* Selam Cooper LPN - 10/08/2013 1:01 PM EDT Images from the original note were not included. [facility] Seborrheic Dermatitis: After Your Visit Your Care Instructions Seborrheic dermatitis (say wkl-unx-FOW-ick lpx-obb-GQ-tus) is a skin problem that causes a reddish rash with greasy, flaky, yellow skin patches. The rash may appear on many parts of the body. It may be on the scalp, face (especially the eyebrowarea and between the nose and mouth), ears, breasts, underarms, and genital area. The flaky skin onthe scalp is called dandruff. This rash is often a long-term (chronic) condition. It may last for years. But the symptoms may come and go. Symptoms can be treated with special creams, shampoos, or other skin care. The cause of seborrheic dermatitis is not fully understood. It may occur when skin glands make too much oil. It may get worse in cold weather or with stress. A type of skin fungus, or yeast, may alsobe linked with this condition. Follow-up care is a rodriguez part of your treatment and safety. Be sure to make and go to all appointments, and call your doctor if you are having problems. It's also a good idea to know your test resultsand keep a list of the medicines you take. How can you care for yourself at home? ?? If your doctor prescribes a steroid cream, dandruff shampoo, or antifungal cream or medicine, use it as directed. If your doctor prescribes other medicine, take it as directed. ?? Use a dandruff shampoo if seborrheic dermatitis affects your scalp. This includes Head & Shoulders, Sebulex, and Selsun Blue. You may need to try a few kinds of shampoo to find the one that works best for you. ?? To help with itching: ?? Use hydrocortisone cream. Follow the directions on the label. ?? Use cold, wet cloths. ?? Take an cglo-azp-wissvkr antihistamine, such as diphenhydramine (Benadryl) or loratadine (Claritin). Read and follow all instructions on the label. When should you call for help? Call your doctor now or seek immediate medical care if: ?? The rash gets worse or spreads to other parts of your body. ?? You have signs of infection, such as: ?? Increased pain, swelling, warmth, or redness. ?? Red streaks leading from the rash. ?? Pus draining from the rash. ?? A fever. ?? You have crusting or oozing sores. ?? You have joint aches or body aches along with your rash. Watch closely for changes in your health, and be sure to contact your doctor if: ?? Your symptoms do not get better with home treatment. ?? Itching interferes with your sleep or daily activities. Where can you learn more? Visit our health information library at [email or web address] You can also view health information on [employer], your personal patient account. Log in or sign up today. Enter X477 in the search box to learn more about Seborrheic Dermatitis: After Your Visit. ?? [id number] [employer]. Care instructions adapted under license by [facility]. This care instruction is for use with your licensed healthcare professional. If you have questions about a medical condition or this instruction, always ask your healthcare professional. [employer] disclaims any warranty or liability for your use of this information. Content Version: 9.9.807374; Last Revised: August 25, 2012 documented in this encounter Progress Notes * Marques Silva MD - 10/08/2013 1:20 PM EDT Problem List: 1. Followup of seborrheic dermatitis. 2. Tags. Adeel follows up and the combination of the Cutar lotion, followed by triamcinolone cream continues to work very well for him. He uses occasionally the selenium sulfide 2.5% lotion as well. He has noted some tags that are somewhat bothersome and would like to have these removed today. Physical examination reveals a pleasant 72-year-old gentleman who has no active seborrheic dermatitis today. He has tags present on the left base of his neck laterally and one on the right base of his neck and several in both axillary vaults. A total of 15 are noted. Will plan return to clinic in another year. Return to clinic reminder in one year. Note: The patient points to a hyperkeratotic papule on the right lateral elbow that is often rubbed and irritated, and this represents an inflamed seborrheic keratosis. This was treated removed today with LN2 times two. COPY: Ivan Kong M.D. documented in this encounter Plan of Treatment Upcoming Encounters Date Type Department Care Team (Late st Contact Info) Description 04/12/2025 11:15 AM EST Office Visit Dermatology at [place] [address] [facility] [place] [address] Marques Silva MD [address] [facility], [place] [address] documented as of this encounter Visit Diagnoses Diagnosis Seborrheic dermatitis- Primary Seborrheic dermatitis, unspecified Seborrheic keratosis, inflamed Inflamed seborrheic keratosis documented in this encounter Care Teams Nuclear Radiation Engineer Relationship Specialty Start Date End Date Ivan Kong MD PCP - General 04/28/10 03/14/17 documented as of this encounter
--- OUTSIDE RECORDS SUMMARY | 2024-06-08 16:43 | XMS_ITS | Encounter Summary ---
Author Organization [facility] [place] [address] Care Team Providers Care Reinsurance Claims Analyst Name Role Phone Ivan Kong MD Primary Care Provider [phone] Reason for Visit * Reason Comments Skin Check Encounter Details Date Type Department Care Team (Late st Contact Info) Description 11/24/2012 4:45 PM EDT Office Visit Dermatology [address] [facility] [address] [place] [address] Marques Silva MD [address], [place] [address] Seborrheic dermatitis (Primary Dx) Social History Tobacco Use Types Packs/Day Years Used Date Smoking Tobacco: Unknown Sex and Gender Information Value Date Recorded Sex Assigned at Not on file Gender Identity Not on file Sexual Orientation Not on file documented as of this encounter Progress Notes * Marques Silva MD - 11/24/2012 6:57 PM EDT Problem: Seborrheic dermatitis. Adeel follows up and is now 72. He continues to have problems with seborrheic dermatitis. Treatment of this in the past has been with 1% clotrimazole cream or hydrocortisone cream. I saw him in November of 2007 and prescribed alternating between selenium sulfide 2.5% lotion as shampoo and an tlte-fta-tzooknq tar shampoo, such as T/Gel or generic [facility] or [employer], using one for two weeks and the other for two weeks every two or three days, rinsing off the lather after three to four minutes. However, the patient does not remember ever using T/Gel, or tar shampoo, and has only been using the prescription selenium sulfide. I had also given him [place]cort cream to use and Cutar lotion, but he does not recall ever having the Cutar and ran out of the Westcort cream long ago. He is here today with his fiancee. Physical examination reveals a pleasant 72-year-old with flaring seborrheic dermatitis of the glabella, nose, nasolabial folds, the cheeks, the chin, ending abruptly on the submandibular chin, but also a little bit of patchy involvement behind both postauricular ears, and in the perineal area as well. Assessment and Plan: 1. Seborrheic dermatitis. a. Recommend that we resume using selenium sulfide 2.5% lotion, 120 mL dispensed with p.r.n. refills, using a q. two to three day basis for two weeks, then switch to generic tar shampoo, such as [employer]antes's or [facility] generic. b. For facial involvement, recommended using Cutar lotion, applying on a q. day/b.i.d. basis to face and other affected areas, allowing to dry, then applying triamcinolone 0.1% cream topically over this. He was given a 60 gram tube of the triamcinolone with five refills. c. Recommend that I see him again in a month and a half for repeat check. Explained that we cannot cure, but we can certainly control it. COPY: Ivan Kogn M.D. documented in this encounter Plan of Treatment Upcoming Encounters Date Type Department Care Team (Late st Contact Info) Description 04/12/2025 11:15 AM EST Office Visit Dermatology at [place] [address] [place] [phone] Marques Silva MD [address] [facility], [place] [address] documented as of this encounter Visit Diagnoses Diagnosis Seborrheic dermatitis- Primary Seborrheic dermatitis, unspecified documented in this encounter Care Teams Reinsurance Claims Analyst Relationship Specialty Start Date End Date Ivan Kong MD PCP - General 04/28/10 03/14/17 documented as of this encounter
--- OUTSIDE RECORDS SUMMARY | 2024-06-08 16:43 | XMS_ITS | Encounter Summary ---
Author Organization [facility] Address [facility] [place] [address] Care Team Providers Care Stone Grader Name Role Phone Ivan Kong MD Primary Care Provider [phone] Reason for Visit * Reason Comments Skin Check Encounter Details Date Type Department Care Team (Late st Contact Info) Description 10/10/2014 10:45 AM EDT Office Visit Dermatology at [address] [place] [address] Marques Silva MD [address] [place] [address], [place] [address] Seborrheic keratosis; Seborrheic dermatitis Discharge Disposition: Home Social History Tobacco Use Types Packs/Day Years Used Date Smoking Tobacco: Former Sex and Gender Information Value Date Recorded Sex Assigned at Not on file Gender Identity Not on file Sexual Orientation Not on file documented as of this encounter Patient Instructions * Patient Instructions* Shawna Armendariz LPN - 10/10/2014 10:54 AM EDT Images from the original note were not included. [facility] Seborrheic Dermatitis: After Your Visit Your Care Instructions Seborrheic dermatitis (say uwd-edb-RNK-ick tun-fws-KI-tus) is a skin problem that causes a [...] Use cold, wet cloths. ?? Take an vgjp-nbw-fxgfpwa antihistamine, such as diphenhydramine (Benadryl) or loratadine [...] more? Visit our health information library at [email or web address] You can also view health information on [email or web address], your personal patient account. Log in or sign up today. Enter X477 in the search box to learn more about Seborrheic Dermatitis: After Your Visit. ?? [id number] [employer]. Care instructions adapted under license by [facility]. This care instruction is for use with your licensed healthcare professional. If you have questions about a medical condition or this instruction, always ask your healthcare professional. [employer] disclaims any warranty or liability for your use of this information. Content Version: 10.4.738894; Current as of: August 15, 2013 documented in this encounter Progress Notes * Marques Silva MD - 10/10/2014 11:14 AM EDT Problems: 1. Followup seborrheic dermatitis. 2. Yearly skin checkup. Adeel follows up, and the combination of the Cutar lotion followed by triamcinolone cream works very well for him. He occasionally will use selenium sulfide 2.5% lotion as well. Tags that were removed have remained well healed, but the seborrheic keratosis on the right elbow did not totally resolve after last visit's therapy. It is much smaller. Physical examination reveals a pleasant, 73-year-old gentleman who has a waxy, orfvv-xf-jrhkqzckh seborrheic keratosis on the right elbow. It is hypopigmented. He has a brown to dark brown, 1-cm seborrheic keratosis of the left superior shoulder. He has five actinics on the right forehead. Otherwise, examination of the head and neck, chest, back, hands, arms, forearms is benign. Assessment and Plan: 1. Actinic keratoses. a. LN2 times two applied to each of five sites. b. I recommended I see the patient again in one year for repeat check. 2. Seborrheic keratosis, right elbow. a. Patient reassured. b. No treatment necessary. 3. Seborrheic dermatitis. a. Continue current therapy. b. Return to clinic in another year for repeat check. COPY: Ivan Kong M.D. documented in this encounter Plan of Treatment Upcoming Encounters Date Type Department Care Team (Late st [facility] Info) Description 04/12/2025 11:15 AM EST Office Visit Dermatology at [place] [address] [place] [address] Marques Silva MD [address] [facility], [place] [address] documented as of this encounter Visit Diagnoses Diagnosis Seborrheic keratosis Other seborrheic keratosis Seborrheic dermatitis Seborrheic dermatitis, unspecified documented in this encounter Care Teams Stone Grader Relationship Specialty Start Date End Date Ivan Kong MD PCP - General 04/28/10 03/14/17 documented as of this encounter
--- OUTSIDE RECORDS SUMMARY | 2024-06-08 16:43 | XMS_ITS | Encounter Summary ---
Author Organization [facility] Address [address] [place] [address] Care Team Providers Care Rider Ticket Worker Name Role Phone Unavailable Primary Care Provider Unavailabl e Encounter Details Date Type Department Care Team (Late st Contact Info) Description 10/11/2005 Results Only [facility] conversion [address] [place] [address] Melba Berumen MD [address] [place] [phone] Social History Tobacco Use Types Packs/Day Years Used Date Smoking Tobacco: Never Assessed Sex and Gender Information Value Date Recorded Sex Assigned at Not on file Legal Sex Male 17:48 EST Gender Identity Not on file Sexual Orientation Not on file documented as of this encounter Plan of Treatment Not on file documented as of this encounter Procedures Procedure Name Priority Date/Time Associated Diagnosis Comments SURGICAL PATHOLOGY Routine 10/11/2005 0:00 EDT documented in this encounter Results * SURGICAL PATHOLOGY (10/11/2005 0:00 EDT) Pathology Report: SURGICAL PATHOLOGY REPORT Reports generated via electronic interface contain original data; however they are lacking the format of the original report. Caution should be taken when reading/interpreti ng unformatted reports. Name: ? ADEEL SCOTT ? Accession #: ? [id number] ? : ? 1940 (Age: 64) ??M ? Collect Date: ? 10/11/2005 ? Location: ? [facility] ? Receive Date: ? 10/11/2005 ? Provider: MELBA BERUMEN MD Copy to: RODERICK RUIZ MD ? Final Pathologic Diagnosis: A. ?Knee, right synovium, biopsy: 1. ?Granulation tissue with fibrinous exudate and mild chronic inflammation. 2. ?Spicules of viable and non-viable bone. ?? 3. ?Pigmented-laden macrophages and foreign body giant cells identified. See comment. B. ?Knee, right synovium, biopsy: 1. ?Synovial tissue with reactive new bone formation. 2. ?Granulation tissue with fibrinous exudate and mild chronic inflammation. 3. ?Pigment-laden macrophages, foreign body giant cells, and polarizable foreign material noted. ??See comment. C. ?Knee, right synovium, biopsy: 1. ?Synovial tissue with reactive new bone formation. 2. ?Granulation tissue with fibrinous exudate and mild chronic inflammation. 3. ?Pigmented-laden macrophages, foreign body giant cells, and polarizable foreign material identified. 4. ?Mild acute inflammation (less than 5 neutrophils per high power field). D. ?Knee, right synovium, biopsy: 1. ?Synovial tissue with reactive new bone formation. 2. ?Granulation tissue with fibrinous exudate and mild chronic inflammation. 3. ?Pigment-laden macrophages, foreign body giant cells, and polarizable foreign material noted. 4. ?Mild acute inflammation (less than 5 neutrophils per high power field). Comment: ? No neutrophils are identified on the permanent sections of specimen (A) and (B). ??These results have been discussed with Dr. Duane Garcia and Dr Melba Berumen. ??(Dr. Wall)/[facility] Document reviewed and electronically signed by: KATIE GERARDO [facility] Report ??Date: 10/13/2005 14:28 By the signature above, the attending physician certifies that he/she has personally conducted a gross and/or microscopic examination of the described specimens and rendered or confirmed the above diagnosis. Specimen(s) Received: ? A. ?? Synovium tissue #1 B. ?? Synovium tissue #2 C. ?? Synovium tissue #3 E. ?Synovium tissue #4 ? Clinical History: ? Revision right total knee Intraoperative Interpretation: ? 1. Synovium, #4, right knee, biopsy (FS1): ??Positive for significant acute inflammation (>5 PMNs/hpf). ?- Dr. Matheus Garcia; 10/11/05 2. Synovium, #1, right knee, biopsy (FS2): ??Positive for significant acute inflammation (>10 PMNs/hpf). ?- Dr. Matheus Garcia; 10/11/05 3. Synovium, #2, right knee, biopsy (FS3): ??Positive for significant acute inflammation (>10 PMNs/hpf). ?- Dr. Matheus Garcia; 10/11/05 4. Synovium, #3, right knee, biopsy (FS4): ??Positive for significant acute inflammation (>5 PMNs/hpf). ?- Dr. Matheus Garcia; 10/11/[address] Berumen in OR via phone. ??- Dr. Matheus Garcia; 10/11/05 Gross Description: ? Received fresh labelled Carbee and #4 synovial tissue R knee are two hall-red fragments of tissue measuring 2.0 x 0.9 x 0.5 cm and 1.7 x 0.7 x 0.3 cm. They are submitted in toto as (FS1A) and (FS1B), with the diagnosis as above. Frozen section controls (FS1A, FS1B) are submitted entirely as (A1) and (A2), respectively. Received fresh labelled Carbee and #1 synovium tissue R knee is a single hall shiny fragment of rubbery firm tissue which measures 2.5 x 2.5 x 0.4 and has one smooth surface. ??Civilian Jail Officer section is submitted as (FS2) with the diagnosis as above. ??The frozen section control (FS2) is submitted entirely as (B1). ??The remaining tissue is submitted as (B2) through (B4). Received fresh labelled Carbee and #2 synovium tissue R knee is an irregular-shaped fragment of hemorrhagic soft tissue which measures 2.5 x 1.5 x 0.3 cm. ??Civilian Jail Officer section is submitted as (FS3) with the diagnosis as above. ??The frozen section control (FS3) is entirely submitted as (C1). ??The remaining tissue is submitted as (C2) and (C3). Received fresh labelled Carbee and #3 synovium tissue R knee are two fragments of hall-red soft tissue with focal smooth surfaces. ??Civilian Jail Officer sections of each piece are submitted as (FS4) with the diagnosis as above. ??The frozen section control (FS4) is entirely submitted as (D1), while all remaining soft tissue is entirely submitted as (D2) through (D3), one tissue fragment bisected in each cassette. ??(Fidel Santa)/[place] End of Report [facility] 10/11/2005 10/11/2005 15: 34 EDT us Melba Berumne MD PATHOLOGY ORDERABLES Final R esult [facility] [address] [place] [address] documented in this encounter Visit Diagnoses Not on filedocumented in this encounter
--- OUTSIDE RECORDS SUMMARY | 2024-06-08 16:43 | XMS_ITS | Encounter Summary ---
Author Organization [facility] Address [facility] [place] [address] Care Team Providers Care Head Of Store Operations Name Role Phone Ivan Leblanc MD Primary Care Provider [phone] Encounter Details Date Type Department Care Team (Late Contact Info) Description 07/15/2009 [place] [address] Flavio Quan III, MD [facility] [place] [address] Social History Tobacco Use Types Packs/Day Years Used Date Smoking Tobacco: Never Assessed Sex and Gender Information Value Date Recorded Sex Assigned at Not on file Gender Identity Not on file Sexual Orientation Not on file documented as of this encounter Plan of Treatment Upcoming Encounters Date Type Department Care Team (Late Contact Info) Description 04/12/2025 11:15 AM EST Office Visit Dermatology at [address] [place] [place] [address] Marques Silva MD [address], [place] [address] documented as of this encounter Procedures Procedure Name Priority Date/Time Associated Diagnosis Comments SURGICAL PATHOLOGY REPORT Routine 07/15/2009 8:30 AM EST documented in this encounter Results * Surgical Pathology Report (07/15/2009 8:30 AM EST) Pathologist [facility] Surgical Pathology Report [id number] ? Location: [facility] The signing pathologist has (i) examined the relevant preparation(s) for the specimen(s) and (ii) rendered or confirmed the diagnosis(es). . ?Pathology Surgical Pathology Final Report Clinical Information Specimen Submitted: A - Foreskin, penis Clinical History: Not provided Clinical Diagnosis: Phimosis Gross Description Labeled/Fixativ e: ? Foreskin, penis; fresh. Qty/Size/Weight : ?Single, 6.0 x 2.5 x 0.5 cm. Tissue Description: ?? Fragment of wrinkled, hall-pink skin. ??Skin surface is ?unremarkable. ??There is a minimal amount of attached ?subcutaneous tissue which is red-brown and ?hemorrhagic. Sections/Proces sing: ??Representativ e sections are submitted in one ?cassette. ??(R1) ??aje/LCS Microscopic Description Slides reviewed, microscopic description not recorded. Diagnosis Penis, foreskin, resection: ?? Skin with dermal chronic inflammation. CR-0 07/16/09 JLK 07/16/09 Verified by: ? Luther Sheth MD ?Pathologist ?(Electronic Signature) The attending pathologist whose signature appears on this report has reviewed all diagnostic slides and has edited the gross and/or microscopic portion of the report in rendering the final pathologic diagnosis. [facility] 07/15/2009 8:30 AM EST Flavio Quan III, MD PATHOLOGY/CYTOLOG Y ORDERABLES Performing Organization Address City/State/[facility] Co vt Phone Number [facility] documented in this encounter Visit Diagnoses Not on filedocumented in this encounter Care Teams Head Of Store Operations Relationship Specialty Start Date End Date Ivan Leblanc MD PCP - General Family Medicine 03/15/17 documented as of this encounter
[2024-06-08 17:36] LABS: Abs Immature Grans 0.02 10^3/uL (0.0-0.06); Absolute Basophil Count 0.03 10^3/uL (0.0-0.2); Absolute Eosinophil Count 0.17 10^3/uL (0.0-0.7); Absolute Lymphocyte Count 2.54 10^3/uL (1.2-3.4); Absolute Monocyte Count 0.78 10^3/uL (0.1-0.8); Absolute Neutrophil Count 4.14 10^3/uL (1.2-6.7); Basophils % 0.4 %; Eosinophils % 2.2 %; HCT 39.8 % (40.0-50.0); HGB 13.6 g/dL (13.5-17.5); Immature Grans % 0.3 %; Lymphocytes % 33.1 %; MCH 36.2 pg (27.0-33.0); MCHC 34.2 % (32.0-36.0); MCV 106 fL (80-95); MPV 8.8 fL (8.0-11.0); Monocytes % 10.2 %; Neutrophils % 53.8 %; Platelet Count 187 10^3/uL (130-400); RBC 3.76 10^6/uL (4.36-5.78); RDW 11.5 % (11.8-14.1); RDW-SD 45.1 fL; WBC 7.68 10^3/uL (4.4-10.8)
== END 2024-06-08 16:40 | disposition home or self-care (01) ==
LOC: NCHCN 16:39
PROVIDERS: PCP Student in an Organized Health Care Education/Training Program; Visit Provider Student in an Organized Health Care Education/Training Program
DX: D64.9 Anemia, unspecified (principal)
CPT/HCPCS: 85025

== ENCOUNTER → 2024-06-13 14:38 | Outpatient (BNVA) | payer MEDICARE, SELFPAY | PROVIDERS: PCP Student in an Organized Health Care Education/Training Program; Referring Provider Student in an Organized Health Care Education/Training Program; Visit Provider Podiatrist | DX: L60.3 Nail dystrophy (principal); B35.1 Tinea unguium; I73.89 Other specified peripheral vascular diseases; I87.2 Venous insufficiency (chronic) (peripheral); R60.0 Localized edema; M25.572 Pain in left ankle and joints of left foot; R09.89 Other specified symptoms and signs involving the circulatory and respiratory systems; L65.9 Nonscarring hair loss, unspecified; R20.8 Other disturbances of skin sensation; R23.8 Other skin changes | CPT/HCPCS: 11721 ==

== ENCOUNTER 2024-07-18 02:05 | Outpatient (CLI) | payer MEDICARE, SELFPAY ==
--- NOTE | 2024-07-18 14:08 | DI.RAD_ITS ---
Exam(s) XR FOOT LT COMPLETE EXAM: XR FOOT LT COMPLETE CLINICAL HISTORY: lateral ankle/foot pain,M79.672. TECHNIQUE: 2D digital imaging was performed. Three views. COMPARISON: No exams were available for comparison FINDINGS: BONES: No acute fracture is present. No bony destructive lesion is seen. Calcaneal enthesophytes. JOINTS: No dislocation present. Hammertoe deformities of the 2nd through 5th toes. Mild degenerati ve changes of the tarsals, greatest at the navicular cuneiform joints. SOFT TISSUE: Vascular calcifications. Diffuse edema. IMPRESSION: Heel spurs. Hammertoe deformities. Mild degenerative changes. DATA REPOSITORY: RADIATION DOSE DELIVERED:
--- NOTE | 2024-07-18 14:09 | DI.RAD_ITS ---
Exam(s) XR ANKLE LT COMPLETE EXAM: XR ANKLE LT COMPLETE CLINICAL HISTORY: LT LAT ankle pain x 3months TECHNIQUE: 2D digital imaging was performed. Three views. COMPARISON: No exams were available for comparison FINDINGS: BONES: No acute fracture is present. No bony destructive lesion is seen. Calcaneal enthesophytes. JOINTS:The ankle mortise is normally aligned. Spurring at the malleoli. Mild narrowing of the medi al tibiotalar joint. SOFT TISSUE: Edema. Chronic soft tissue calcifications. Vascular calcifications. IMPRESSION: Mild degenerative changes of the tibiotalar joint. DATA REPOSITORY: RADIATION DOSE DELIVERED:
== END 2024-07-18 02:25 ==
LOC: DI 02:05
PROVIDERS: PCP Student in an Organized Health Care Education/Training Program; Visit Provider Podiatrist
DX: M25.572 Pain in left ankle and joints of left foot
CPT/HCPCS: 20605; 73610; 73630

== ENCOUNTER 2024-09-10 03:40 | Outpatient (CLI) | payer MEDICARE, SELFPAY ==
[2024-09-10 14:15] LABS: Vitamin B12 387 pg/mL (193-986)
[2024-09-10 14:16] LABS: Folate > 20.0 ng/mL (8.6-20.0)
== END 2024-09-10 03:41 | disposition home or self-care (01) ==
PROVIDERS: PCP Student in an Organized Health Care Education/Training Program; Visit Provider Student in an Organized Health Care Education/Training Program
DX: D75.89 Other specified diseases of blood and blood-forming organs (principal)
CPT/HCPCS: 36415; 82607; 82746

== ENCOUNTER → 2024-10-17 10:04 | Outpatient (BNVA) | payer MEDICARE, SELFPAY | PROVIDERS: PCP Student in an Organized Health Care Education/Training Program; Referring Provider Student in an Organized Health Care Education/Training Program; Visit Provider Podiatrist | DX: L60.3 Nail dystrophy (principal); B35.1 Tinea unguium; I73.89 Other specified peripheral vascular diseases; I87.2 Venous insufficiency (chronic) (peripheral); R60.0 Localized edema; R09.89 Other specified symptoms and signs involving the circulatory and respiratory systems; L65.9 Nonscarring hair loss, unspecified; R20.8 Other disturbances of skin sensation; L60.8 Other nail disorders; R23.8 Other skin changes; I83.93 Asymptomatic varicose veins of bilateral lower extremities; L60.2 Onychogryphosis; L85.8 Other specified epidermal thickening | CPT/HCPCS: 11055; 11721 ==

== ENCOUNTER 2025-01-01 15:03 | Outpatient (REF) | payer MEDICARE, SELFPAY ==
[2025-01-01 20:51] LABS: Abs Immature Grans 0.02 10^3/uL (0.0-0.06); HCT 38.9 % (40.0-50.0); HGB 13.2 g/dL (13.5-17.5); Immature Grans % 0.3 %; MCH 35.8 pg (27.0-33.0); MCHC 33.9 % (32.0-36.0); MCV 105 fL (80-95); MPV 9.2 fL (8.0-11.0); Platelet Count 198 10^3/uL (130-400); RBC 3.69 10^6/uL (4.36-5.78); RDW 11.9 % (11.8-14.1); RDW-SD 45.7 fL; WBC 6.15 10^3/uL (4.4-10.8)
[2025-01-01 21:26] LABS: ALT 22 U/L (16-63); AST 27 U/L (15-37); Albumin 3.5 g/dL (3.4-5.0); Alkaline Phosphatase 100 U/L (46-116); Anion Gap 7.1 mmol/L (3-11); BUN 21 mg/dL (7-18); Bilirubin, Total 0.5 mg/dL (0.2-1.0); CO2 28.9 mmol/L (21.0-32.0); Calcium 8.5 mg/dL (8.5-10.1); Chloride 106 mmol/L (98-107); Estimated GFR 83.18 (mL/min/1.73m2); Glucose 99 mg/dL (74-106); Potassium 4.0 mmol/L (3.5-5.1); Sodium 142 mmol/L (136-145); Total Protein 6.7 g/dL (6.4-8.2); Vitamin B12 401 pg/mL (193-986)
[2025-01-01 21:27] LABS: Folate > 20.0 ng/mL (8.6-20.0)
== END 2025-01-01 15:04 | disposition home or self-care (01) ==
LOC: NCHCN 15:03
PROVIDERS: PCP Student in an Organized Health Care Education/Training Program; Visit Provider Student in an Organized Health Care Education/Training Program
DX: I10 Essential (primary) hypertension (principal)
CPT/HCPCS: 80053; 82607; 82746; 85025

== ENCOUNTER 2025-02-22 01:07 | Outpatient (CLI) | payer MEDICARE, SELFPAY ==
[2025-02-22 09:51] LABS: Abs Immature Grans 0.01 10^3/uL (0.0-0.06); HCT 38.5 % (40.0-50.0); HGB 12.8 g/dL (13.5-17.5); Immature Grans % 0.2 %; MCH 34.6 pg (27.0-33.0); MCHC 33.2 % (32.0-36.0); MCV 104 fL (80-95); MPV 8.5 fL (8.0-11.0); Platelet Count 171 10^3/uL (130-400); RBC 3.70 10^6/uL (4.36-5.78); RDW 11.6 % (11.8-14.1); RDW-SD 44.2 fL; WBC 6.54 10^3/uL (4.4-10.8)
[2025-02-22 10:28] LABS: TSH (W/Ref FT4) 2.04 uIU/mL (0.36-3.74)
[2025-02-25 12:49] LABS: Albumin 58.3 % (55.8-66.1); Albumin g/dL 3.8 g/dL (3.6-5.2); Alpha 1 g/dL 0.30 g/dL (0.15-0.40); Alpha 2 g/dL 0.70 g/dL (0.50-1.00); Beta g/dL 0.70 g/dL (0.60-1.20); Gamma g/dL 1.00 g/dL (0.60-1.60); Total Protein 6.6 g/dL (6.3-8.2)
== END 2025-02-22 01:08 | disposition home or self-care (01) ==
LOC: LBO 01:07
PROVIDERS: PCP Student in an Organized Health Care Education/Training Program; Visit Provider Student in an Organized Health Care Education/Training Program
DX: D50.9 Iron deficiency anemia, unspecified (principal)
CPT/HCPCS: 36415; 80186; 83090; 84165; 84443; 85025; 85045

== ENCOUNTER → 2025-02-26 09:59 | Outpatient (BNVA) | payer MEDICARE, SELFPAY | PROVIDERS: PCP Student in an Organized Health Care Education/Training Program; Referring Provider Student in an Organized Health Care Education/Training Program; Visit Provider Podiatrist | DX: L60.3 Nail dystrophy (principal); B35.1 Tinea unguium; I73.89 Other specified peripheral vascular diseases; I87.2 Venous insufficiency (chronic) (peripheral); R60.0 Localized edema; R09.89 Other specified symptoms and signs involving the circulatory and respiratory systems; L65.9 Nonscarring hair loss, unspecified; R20.8 Other disturbances of skin sensation; R23.8 Other skin changes; L60.2 Onychogryphosis; L60.8 Other nail disorders; I83.93 Asymptomatic varicose veins of bilateral lower extremities; L85.8 Other specified epidermal thickening | CPT/HCPCS: 11055; 11721 ==

== ENCOUNTER → 2025-05-13 12:54 | Outpatient (BNVA) | payer MEDICARE, SELFPAY | PROVIDERS: PCP Student in an Organized Health Care Education/Training Program; Referring Provider Student in an Organized Health Care Education/Training Program; Visit Provider Podiatrist | DX: L60.3 Nail dystrophy (principal); B35.1 Tinea unguium; I73.89 Other specified peripheral vascular diseases; I97.2 Postmastectomy lymphedema syndrome; R60.0 Localized edema; L84 Corns and callosities; M79.671 Pain in right foot; M79.672 Pain in left foot; R09.89 Other specified symptoms and signs involving the circulatory and respiratory systems; L65.9 Nonscarring hair loss, unspecified; R20.8 Other disturbances of skin sensation; R23.4 Changes in skin texture; L60.8 Other nail disorders; I83.93 Asymptomatic varicose veins of bilateral lower extremities; R23.8 Other skin changes; L60.2 Onychogryphosis; L85.8 Other specified epidermal thickening | CPT/HCPCS: 11056; 11721 ==